=== PATIENT | male | born 1965 | race Native Hawaiian/Other Pacific Islander ===

== ENCOUNTER 2024-06-28 16:28 | Emergency (ER) | payer MEDICAID, SELFPAY ==
[2024-06-28 16:29] VITALS: BMI 25.9
[2024-06-28 17:02] VITALS: BP 142/92; PULSE 87; RESP 20; TEMP 36.8; O2SAT 97
--- NOTE | 2024-06-28 17:11 | EKG_ITS ---
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
--- NOTE | 2024-06-28 17:11 | XR_ITS ---
Examination: PA lateral chest 2 views Technique: Upright PA lateral chest 2 views Exam date and time: June 28, 2024 at 1726 hrs. Indications: Chest pain beginning 2 days ago. Findings: Normal heart size No pneumonia or pulmonary edema The osseous structures are intact Impression: No active disease
--- NOTE | 2024-06-28 17:14 | PD.EDRME ---
Rapid Medical Screening Exam RME Arrival date/time: 06/28/24 16:28 This is a 58-year-old male that comes into the emergency room with complaints of chest pain and shortness of breath that comes and goes for the last couple days. Patient states that when he gets the chest pain he radiates down his right arm. Patient has a history of high blood pressure and diabetes. I have greeted and performed a focused initial assessment of this patient. Initial appropriate labs ordered at this time. A comprehensive ED assessment and evaluation of the patient and analysis of all test and completion of medical decision making process will be conducted by additional ED provider. Chief Complaint: Shortness of Breath/Dyspnea Time Seen by Provider: 06/28/24 16:37 Vital signs: Vital Signs Temperature 98.3 F 06/28/24 17:02 Pulse Rate 87 06/28/24 17:02 Respiratory Rate 20 06/28/24 17:02 Blood Pressure 142/92 H 06/28/24 17:02 Pulse Oximetry (%) 97 06/28/24 17:02 Oxygen Delivery Method Room Air 06/28/24 17:02
[2024-06-28 17:38] LABS: Basophils % (Auto) 1 % (0-2.5); Eosinophils # (Auto) 0.1 Thou/mm3 (0.0-0.5); Eosinophils % (Auto) 2 % (0-10); Hemoglobin 12.8 g/dL (13.5-16.0); Immature Granulocytes % (Auto) 0 % (0-0); Immature Granulocytes Auto 0.02 Thou/mm3 (0.00-0.00); Lymphocytes # (Auto) 2.1 Thou/mm3 (1.0-4.8); Lymphocytes % (Auto) 37 % (10-50); Mean Corpuscular HGB Conc 30.5 g/dl (31.0-37.0); Mean Corpuscular Volume 72 fL (80-100); Monocytes # (Auto) 0.7 Thou/mm3 (0.0-0.8); Monocytes % (Auto) 12 % (0-12); Neutrophils # (Auto) 2.7 Thou/mm3 (1.8-7.7); Neutrophils % (Auto) 48 % (37-80); Nucleated Red Blood Cell % 0 /100 WBC (0); Platelet Count 224 Thou/mm3 (140-440); RDW Standard Deviation 35.6 fL (35.1-43.9); Red Blood Count 5.81 Miln/mm3 (4.50-5.90); White Blood Count 5.6 Thou/mm3 (3.8-10.6)
[2024-06-28 17:57] LABS: Alanine Aminotransferase 26 U/L (10-49); Albumin, Serum 4.6 gm/dL (3.5-5.0); Albumin/Globulin Ratio 1.6 (1.2-2.2); Alkaline Phosphatase 96 U/L (46-116); Anion Gap 9 (7-16); Aspartate Amino Transferase 20 U/L (0-34); BUN/Creatinine Ratio 14 Ratio (12-20); Bilirubin,Total 0.3 mg/dL (0.3-1.2); Blood Urea Nitrogen 17 mg/dL (9-23); Calcium 9.3 mg/dL (8.3-10.6); Calcium (Corrected) 9.3 mg/dL (8.5-10.1); Carbon Dioxide 27.8 mMol/L (20.0-31.0); Chloride 105 mMol/L (98-107); Creatinine (Component) 1.2 mg/dL (0.6-1.3); Estimated Creatinine Clearance 65.7 mL/min (>60); Globulin 2.9 gm/dL (2.3-3.5); Glucose 100 mg/dL (74-106); Osmolality,Calculated 284 (275-295); Potassium 3.8 mMol/L (3.4-5.1); Sodium 142 mMol/L (136-145); Total Protein 7.5 gm/dL (5.7-8.2); Troponin I < 0.002 ng/mL (0.0-0.045); eGFR > 60 See Note
[2024-06-28 17:59] LABS: B-Type Natriuretic Peptide 28 pg/mL (0-100)
--- NOTE | 2024-06-28 20:45 | PC.NURSE ---
NO ANSWER FOR REVIEW
--- NOTE | 2024-06-28 21:00 | PC.NURSE ---
NO ANSWER FOR REVIEW
--- NOTE | 2024-06-28 21:15 | PC.NURSE ---
NO ANSWER FOR REVIEW
== END 2024-06-28 21:25 | disposition left against medical advice (07) ==
PROVIDERS: Nurse Practitioner Family; Emergency Provider Emergency Medicine; PCP Nurse Practitioner Family
DX: R06.02 Shortness of breath (principal); E11.9 Type 2 diabetes mellitus without complications; Z53.29 Procedure and treatment not carried out because of patient's decision for other reasons
CPT/HCPCS: 36415; 71046; 80053; 83880; 84484; 85025; 93005; 99283

== ENCOUNTER 2024-07-04 02:57 | Inpatient (IN) | payer MEDICAID, SELFPAY ==
[2024-07-04] VITALS (11 sets, daily range): BP systolic 105–142; BP diastolic 74–100; PULSE 67–111; RESP 15–19; TEMP 36.2–37.1; O2SAT 95–98; BMI 26.6
--- NOTE | 2024-07-04 03:08 | EKG_ITS ---
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
[2024-07-04 04:04] LABS: Basophils # (Auto) 0.1 Thou/mm3 (0.0-0.2); Basophils % (Auto) 1 % (0-2.5); Eosinophils # (Auto) 0.1 Thou/mm3 (0.0-0.5); Eosinophils % (Auto) 2 % (0-10); Hematocrit 41.7 % (41.0-53.0); Hemoglobin 12.9 g/dL (13.5-16.0); Immature Granulocytes % (Auto) 0 % (0-0); Immature Granulocytes Auto 0.02 Thou/mm3 (0.00-0.00); Lymphocytes % (Auto) 37 % (10-50); Mean Corpuscular HGB Conc 30.9 g/dl (31.0-37.0); Mean Corpuscular Hemoglobin 21.8 pg (25.0-35.0); Mean Corpuscular Volume 71 fL (80-100); Monocytes # (Auto) 0.6 Thou/mm3 (0.0-0.8); Monocytes % (Auto) 11 % (0-12); Neutrophils # (Auto) 2.6 Thou/mm3 (1.8-7.7); Neutrophils % (Auto) 50 % (37-80); Nucleated Red Blood Cell % 0 /100 WBC (0); Platelet Count 197 Thou/mm3 (140-440); RDW Standard Deviation 34.5 fL (35.1-43.9); Red Blood Count 5.91 Miln/mm3 (4.50-5.90); White Blood Count 5.3 Thou/mm3 (3.8-10.6)
[2024-07-04 04:20] LABS: Alanine Aminotransferase 33 U/L (10-49); Albumin, Serum 4.3 gm/dL (3.5-5.0); Albumin/Globulin Ratio 1.5 (1.2-2.2); Alkaline Phosphatase 104 U/L (46-116); Anion Gap 8 (7-16); Aspartate Amino Transferase 22 U/L (0-34); BUN/Creatinine Ratio 18 Ratio (12-20); Bilirubin,Total 0.4 mg/dL (0.3-1.2); Blood Urea Nitrogen 20 mg/dL (9-23); Calcium 9.6 mg/dL (8.3-10.6); Calcium (Corrected) 9.6 mg/dL (8.5-10.1); Carbon Dioxide 27.6 mMol/L (20.0-31.0); Chloride 105 mMol/L (98-107); Creatinine (Component) 1.1 mg/dL (0.6-1.3); Estimated Creatinine Clearance 69.3 mL/min (>60); Globulin 2.9 gm/dL (2.3-3.5); Glucose 143 mg/dL (74-106); Osmolality,Calculated 285 (275-295); Potassium 3.8 mMol/L (3.4-5.1); Sodium 141 mMol/L (136-145); Total Protein 7.2 gm/dL (5.7-8.2); eGFR > 60 See Note
[2024-07-04 04:33] LABS: D-Dimer 726 ng/mL (<600)
--- NOTE | 2024-07-04 04:35 | XR_ITS ---
Examination: CTA chest with intravenous contrast 2-D reconstructions 3-D reconstructions, vascular Date and time of exam: 2024 at 0613 hrs. Indication: Chest pain shortness of breath syncopal episode today with elevated d-dimer CTDI: vol (mGy) 10.1 DLP: (mGycm) 383 Technique: Multiple axial sections of the thorax have been obtained. 3 mm slice thickness, from below the hemidiaphragms to above the apices of the lungs. Mediastinal and lung density settings have been obtained. 2-D sagittal and coronal reconstructions. 3-D angiographic renderings, 3-D volume renderings, 3D post processing, vascular maximum intensity projections obtained. Contrast administered is 100 cc Isovue-370. Intravenous Low dose protocols were performed. One or more of the following dose reduction techniques were used; automated exposure control, adjustment of the mA and/or KV according to patient size, use of iterative reconstruction technique. Findings: No thoracic aortic aneurysm dilatation No pulmonary artery emboli No paratracheal and peribronchial or bronchopulmonary adenopathy Tiny cavitary areas of parenchymal disease throughout the right lung, for instance axial image 97, axial image 184 No lobar pneumonia or pulmonary edema Mild thoracic spondylosis No pleural disease No visualized liver lesion no gallstones or pancreatic mass Normal adrenal glands Kidneys partially visualized no hydronephrosis Impression: Negative for pulmonary artery emboli Scattered areas of cavitary disease throughout the right lung, differential would include tuberculosis, coccidioidomycosis, clinical correlation advised
--- NOTE | 2024-07-04 04:35 | PC.NURSE ---
Pt presents to the Er with c/o right sided chest pain worsening with breathing and sob. Pt states he was seen last week for the same symptoms. pt states since then pain has been continued intermittently. Pt has cardiology consult and is awaiting to see in August of this year. Pt in NAD at this time, respirations are even and unlabored. Pt placed on cardiac monitoring, Iv started 20gLAC. Pt updated on care plan. Call light within reach. Plan of care on going at this time.
--- NOTE | 2024-07-04 04:38 | EDNOTE_ITS ---
<Statement entered by Kathy Millan MD - 07/04/24 18:35> As co-signing physician, I was present and available for consult prn. I concur with the plan and care as documented by the midlevel provider. ED SOB =RME/HPI General Chief Complaint: Chest Pain Stated Complaint: BACK PAIN,SOB Time Seen by Provider: 07/04/24 03:38 Arrival date/time: 07/04/24 02:57 58M with history of DM and HLD presents to ED with 1 week of R upper back pain radiating to R-arm and SOB, as well as near-syncope. Pain is somewhat worse with movement. Patient was here about 1 week ago for this with unremarkable cardiac work-up but no D-dimer was checked. Patient denies recent travel, smoking, RUE swelling, URI symptoms, dysuria/hematuria, and fall/trauma. Patient has initial cardiology appt in August. Limitations: no limitations Related Data Home Medications ?Medication ?Instructions ?Recorded ?Confirmed aspirin 81 mg chewable tablet 81 mg PO QDAY 07/04/24 0 07/04/24 atorvastatin 40 mg tablet 40 mg PO QPM 07/04/24 finerenone 10 mg tablet (Kerendia) 10 mg PO QDAY 07/0407/04/24 lisinopril 10 mg tablet 10 mg PO QDAY 07/04/2407/04 Allergies Allergy/AdvReac Type Severity Reaction Status Date / Time No Known Allergies Allergy Verified 07/04/24 03:00 Review of Systems Review of Systems Systems Reviewed: All systems reviewed, normal except as documented Constitutional Constitutional: Reports system reviewed and no additional complaints, except as documented, Denies fever(s) and Denies headache(s) ENT Ears, Nose, Mouth, and Throat: Denies disequilibrium and Denies headache(s) Cardiovascular Cardiovascular: Reports system reviewed and no additional complaints, except as documented, Denies chest pain, Reports dyspnea and Reports syncope (near syncope) Respiratory Respiratory: Reports system reviewed and no additional complaints, except as documented, Reports as per HPI, Denies cough and Reports dyspnea Gastrointestinal Gastrointestinal: Reports system reviewed and no additional complaints, except as documented, Denies abdominal pain, Denies nausea and Denies vomiting Musculoskeletal Musculoskeletal: Reports as per HPI and Reports back pain Neurologic Neurologic: Reports system reviewed and no additional complaints, except as documented, Reports as per HPI, Denies confusion, Denies disequilibrium, Denies headache(s) and Reports syncope (near syncope) Psychiatric Psychiatric: Denies confusion Past Medical History Past Medical History CARDIAC: Negative Cardiac Disorders or Congestive Heart Failure RESPIRATORY: Negative Chronic Obstructive Pulmonary Disease (COPD) or Asthma GENITOURINARY: Negative Renal Disease ENDOCRINE: Negative Diabetes Mellitus Type 1 or Diabetes Mellitus Type 2 HEMATOLOGIC: Negative Sickle Cell Disease Social History SMOKING STATUS: Never smoker ED Exam General Limitations: Present no limitations General appearance: Present alert and in no apparent distress Head Head exam: Present atraumatic Eye Eye exam: Present normal appearance, PERRL and EOMI ENT ENT exam: Present normal exam, normal oropharynx and mucous membranes moist Neck Neck exam: Present normal inspection, full ROM and trachea midline Chest Chest inspection: Present normal inspection and symmetric chest wall rise Respiratory Respiratory exam: Present normal lung sounds bilaterally Cardiovascular Cardiovascular exam: Present regular rate, normal rhythm and normal heart sounds Abdominal Exam Abdominal exam: Present soft and normal bowel sounds Extremities Exam Extremities exam: Present normal inspection and full ROM Back Exam Back exam: Present normal inspection and full ROM Neurological Exam Neurological exam: Present alert, oriented X3 and CN II-XII intact Psychiatric Psychiatric exam: Present normal affect and normal mood Skin Skin exam: Present warm, dry, intact and normal color Course Quality Measures none Orders Category Date Time Status Bedside Influenza A&B Antigen Test NOW Care 07/04/24 08:56 Completed COVID-19 Screening Questionnaire NOW Care 07/04/24 08:[address] Screening NOW Care 07/04/24 04:35 Active Decision to Admit X1 Care 07/04/24 08:57 Completed EKG (ED ONLY) *Do not use* NOW Care 07/04/24 03:08 Completed Insert IV NOW Care 07/04/24 04:[address] angio chest Stat Exams 07/04/24 04:35 Completed EKG (ED Only) Stat Exams 07/04/24 03:08 Draft CBC Stat Lab 07/04/24 03:49 Completed CMP [Comprehensive Metabolic Panel] Stat Lab 07/04/24 03:49 Completed Cocci Serology IgM with reflex to IgG [Cocci Serology, Lab 07/04/24 08:31 Ordered Unk History] Stat D-Dimer Stat Lab 07/04/24 03:49 Completed INR [Prothrombin Time with INR] Stat Lab 07/04/24 03:49 Completed PTT [Partial Thromboplastin Time] Stat Lab 07/04/24 03:49 Completed Troponin I Stat Lab 07/04/24 03:49 Completed Troponin I Stat Lab 07/04/24 07:54 Completed Vital Signs Vital signs: Vital Signs Temperature 98.0 F 07/04/24 03:21 Pulse Rate 87 07/04/24 03:21 Respiratory Rate 18 07/04/24 03:21 Blood Pressure 121/86 H 07/04/24 03:21 Pulse Oximetry (%) 97 07/04/24 03:21 Oxygen Delivery Method Room Air 07/04/24 03:21 O2 at 97% on RA and WNLs Shortness of Breath / Dyspnea MDM Narrative MDM Narrative:: 58M with history of DM and HLD presents to ED with 1 week of R upper back pain radiating to R-arm and SOB, as well as near-syncope. Pain is somewhat worse with movement. Patient was here about 1 week ago for this with unremarkable cardiac work-up but no D-dimer was checked. Patient denies recent travel, smoking, RUE swelling, URI symptoms, dysuria/hematuria, and fall/trauma. Patient has initial cardiology appt in August. Physical exam reveals clear ENT and lungs. RRR. Normal RUE exam. Patient is afebrile, calm, and alert. EKG has significant RBBB. However this RBBB has been consistent in his EKGs going back to 2021. Patient had a CTA back in 2021 with no PE, but did show moderate calcification of LAD. No leukocytosis. CMP unremarkable. D-dimer mildly elevated. Trop normal. CTA ordered. Care signed out to colleague. Addendum: CTA no PE. Possible TB/cocci. Patient was admitted by colleague. Patient data External records reviewed:: [facility] previous records Clinical information provided by:: patient Social determinants that could affect healthcare access:: none Patient has the following chronic illnesses:: DM and HLD How is presenting disease/condition affected by chronic disease/condition?: exacerbated by Evaluation data The following diagnostics were reviewed and interpreted by me:: lab results, radiology exam(s) and EKG tracing(s) Lab and/or radiology exams considered but not ordered:: ordered Interpretation Summary: above Medications / Prescriptions Medications or Prescriptions considered but not ordered:: ordered Medication administrations:: Medication Administration History Acetaminophen (Acetaminophen 500 Mg Tablet) 1,000 mg PO Q6H PRN PRN Reason: Fever >100 or pain 1-3 Stop: 08/03/24 14:31 Albuterol/Ipratropium (Albuterol/Ipratropium (Duoneb) Rt [place] 3 Ml Nebu) 3 ml INH Q6HRRT PRN PRN Reason: SHORTNESS OF BREATH OR WHEEZE Stop: 08/03/24 14:31 Dextrose (Dextrose 50%-Water Inj 50 Ml Syringe) 25 ml IV Q15MIN PRN PRN Reason: BG 50-70 responsive npo pt Stop: 08/03/24 14:34 Dextrose (Dextrose 50%-Water Inj 50 Ml Syringe) 50 ml IV Q15MIN PRN PRN Reason: BG <50 OR BG <70 & pt unresponsive Stop: 08/03/24 14:34 Enoxaparin Sodium (Enoxaparin Sod Inj 40 Mg/0.4 Ml Syringe) 40 mg SC QDAY MICHEL Stop: 07/19/24 08:59 Glucagon (Glucagon Inj 1 Mg Vial) 1 mg IM Q15MIN PRN PRN Reason: BG <70, and no IV access Insulin Human Lispro (Insulin Lispro (Admelog) 1 Unit/0.01 Ml Unit) 0 unit SC AC MICHEL; Protocol Stop: 08/03/24 16:59 Last Admin: 07/04/24 17:26 Dose: Not Given Documented By: ANABEL Non-Admin Reason: blood sugar 146 Ondansetron HCl (Ondansetron Inj 2 Mg/Ml Inj 2 Ml) 4 mg IV Q6H PRN; Protocol PRN Reason: NAUSEA OR VOMITING Stop: 08/03/24 14:31 Sennosides (Senna Tablet) 1 tab PO QDAY PRN; Protocol PRN Reason: constipation Stop: 08/03/24 14:31 Discontinued Medications Dextrose (D10w 1000 Ml) 1,000 mls @ 100 mls/hr IV .Q10H MICHEL Stop: 07/05/24 00:44 Sodium Chloride (Sodium Chloride Rt 10% 15 Ml Nebu) 5 ml INH X1 ONE Stop: 07/04/24 14:37 above Consultations Consultation(s) initiated? (list below): Yes Diagnosis Shortness of Breath Differential Diagnosis: acute exacerbation of chronic obstructive airways disease, congestive heart failure, community acquired pneumonia, asthma with exacerbation, pulmonary embolism and other (ACS, angina, atypical chest pain and pulmonary cavitary lesion) Most likely diagnosis given after review of the tests above:: atypical chest pain and pulmonary cavitary lesion Admission Indicated Admission indicated?: indicated Admission Request Was there a request for admission?: Yes Admission Attestation Admission request attestation: Colleague discussed case with Hospitalist service regarding admission. Discussed patients ED course, exam findings, labs, and radiology results. The Hospitalist [agrees] to accept the patient for admission. Disposition Plan Disposition Plan: Admit Discharge Plan Plan Patient Disposition: Admit Acute Care w/in Hospital Problem List Clinical Impression: Atypical chest pain, Pulmonary cavitary lesion Patient/Caregiver Discharge Instructions Discharge Activity: activity as tolerated PA/DETACHER Supervising Physician PA/DETACHER Supervising Physician: Dr Duff
[2024-07-04 04:50] LABS: Troponin I < 0.002 ng/mL (0.0-0.045)
[2024-07-04 05:08] LABS: Partial Thromboplastin Time 26.1 Seconds (22.0-36.0); Prothrombin Time 10.5 Seconds (9.0-12.2)
[2024-07-04 08:20] LABS: Troponin I < 0.002 ng/mL (0.0-0.045)
--- NOTE | 2024-07-04 08:58 | EDNOTE_ITS ---
Emergency Room Addendum Addendum Narrative: This case was signed out to me by colleague as a signout. To follow-up on CTA rule out PE. 58-year-old [place] male history of hypertension, hyperlipidemia presented to the emergency department with complaints of right sided chest pain intermittently for the last 2 weeks. Patient reports he had been to the emergency department approximate 2 weeks ago and followed up with his PCP however pain continued. I went ahead and reviewed his CT a was negative for PE however patient had some multiple cavitary lesions on the right side lung. Radiologist read to rule out TB, cocci. I did go ahead and ordered a cocci with reflex titers. Patient denies any recent travel, is not experiencing myalgias, fatigue, hemoptysis, night sweats, decreased weight loss. At this time I will go ahead and call the admitting team for admission due to rule out TB. 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 called at [phone] I did go ahead and call the admitting team spoke with Paul- resident they will come and evaluate the patient for admission.
--- NOTE | 2024-07-04 09:27 | PD.RESHP ---
Documentation for date of: 07/04/24 [facility] History of Present Illness History of present illness: Harshad is a 58-year-old male with past medical history of hypertension, hyperlipidemia, prediabetes who comes for an evaluation of right-sided chest pain that radiates to his back, that comes and goes, rated 4 out of 10, does not change with exertion, and has been having this for years. Of note patient was recently seen in the ER for similar symptoms and had workup and was then sent home by ED. He comes in for further evaluation today for similar complaints. He does endorse that this has been going on for years and want to make sure that it was nothing else. He denies having any headache or associated shortness of breath or cough. He denies any recent travel, sick contacts. He says that he is from [facility] and came to [place] in 1977 and has not been to [facility] since 2004. He denies any night sweats, weight loss. He says that he has never got the beta-hCG vaccine. Denies being exposed at least to his knowledge to anyone with tuberculosis. His bowel movements are regular. denies any other symptoms of fever, nausea, vomiting, diarrhea, abdominal pain, confusion. He says he has taken metformin for, however stopped as it was giving him nausea, however he says he is prediabetic. No other complaints at this time. ED course: Patient came to the ED with a blood pressure of 134/88, heart rate of 72, respiratory of 16, saturating on 98% room air, temperature of 98. He was worked up and was found to have a white count of 5.3 hemoglobin 13, platelets of 197, sodium of 141, potassium of 3.8 bicarb of 28, BUN/creatinine of 21.1 respectively, glucose of 143, coagulation panel negative, D-dimer 726, AST ALT 22 and 32 respectively. Troponin negative x 2. EKG showed normal sinus rhythm, however right bundle branch block V2 (however this has been seen in previous EKGs). CTA chest was done and showed multiple scattered areas of cavitation in right lung. Medicine was consulted and patient admitted to floors. Past medical history: As above Surgical history: Repair of hernia in Allergies: No known allergies Meds: Lipitor, a blood pressure medicine he does not know the name of, and vitamin D Family history: Mother had diabetes, denies history of stroke, heart attacks and tuberculosis in the family. Social history: Born in [facility], came in 1977 to [facility]. He lived in [facility] specifically [place] until 2018 as he moved here to take care of his mom. 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 He denies ever getting the beta-hCG vaccine. 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 Denies history of smoking, oral or IV drug use, has an occasional beer but he does not finish it routinely. Walks 2 miles 3 times a week. Eats a majority of his meals at home. Denies any recent travel outside the country. Review of Systems Review of Systems Narrative Review of Systems: Constitutional: No fever, chills, fatigue, weakness, weight loss HEENT: No eye pain, vision loss, ear pain, hearing loss, dysphagia, Cardiovascular: Positive right sided chest pain, palpitations, edema, pain with walking Respiratory: No cough, shortness of breath, wheezing GI: No NVD, abdominal pain, constipation, blood in stool, loss of appetite, heartburn Extremities: No presence of pitting edema MSK: Positive right-sided back pain, joint pain, joint swelling Neuro: No dizziness, numbness, weakness, headaches, seizures, tremors Psych: No anxiety, depression Exam Vital Signs Temp Pulse Resp BP Pulse Ox O2 Del Method 98.2 F 79 18 133/90 H 97 Room Air 07/04/24 09:00 07/04/24 09:00 07/04/24 09:00 07/04/24 09:00 07/04/24 09:00 07/04/24 09:00 Narrative Exam General: AAOx3, NAD, pleasant appearing male with blonde hair HEENT: Moist mucous membranes, conjunctiva clear, EOMI, PERRLA, some missing dentition Cardiovascular: S1, S2, radial pulses +2 bilat, RRR Pulmonary: CTAB bilat no cough, no wheezing GI: No tenderness to light or deep palpitation, no guarding, rigidity, rebound tenderness or distension Extremities: No presence of trace or pitting edema in lower extremities bilaterally, dorsalis pedis pulses +2 bilaterally, right shoulder tattoos, some possible ulcers/scabs seen on lower extremities bilaterally, significant prominence of distal end of ulna or pisiform bilaterally Back: Thoracic and lumbar spine midline, no evidence of trauma to back Neuro: AAOx3, no focal motor or sensory deficits in the UE or LE bilat Psych: Good judgement, thought and behavior. Cooperative Results: Labs 07/05/24 05:55 07/05/24 05:55 Labs: Short CBC 07/04/24 Range/Units 03:49 WBC 5.3 (3.8-10.6) Thou/mm3 Hgb 12.9 L (13.5-16.0) g/dL Hct 41.7 (41.0-53.0) % Plt Count 197 (140-440) Thou/mm3 BMP 07/04/24 03:49 Sodium 141 Potassium 3.8 Chloride 105 Carbon Dioxide 27.6 BUN 20 Creatinine 1.1 Glucose 143 H Calcium 9.6 Cardiac Enzymes 07/04/24 07/04/24 Range/Units 03:49 07:54 Troponin I < 0.002 < 0.002 (0.0-0.045) ng/mL Liver Function 07/04/24 Range/Units 03:49 Total Bilirubin 0.4 (0.3-1.2) mg/dL AST 22 (0-34) U/L ALT 33 (10-49) U/L Alkaline Phosphatase 104 (46-116) U/L Albumin 4.3 (3.5-5.0) gm/dL Quality Measures Quality Measures none Medications Home Medications and Allergies Home Medications ?Medication ?Instructions ?Recorded ?Confirmed ?Type aspirin 81 mg chewable tablet 81 mg PO QDAY 07/04/24 07/04/24 History atorvastatin 40 mg tablet 40 mg PO QPM 07/04/24 07/04/24 History finerenone 10 mg tablet (Kerendia) 10 mg PO QDAY 07/04/24 07/04/24 History lisinopril 10 mg tablet 10 mg PO QDAY 07/04/24 07/04/24 History Allergies Allergy/AdvReac Type Severity Reaction Status Date / Time No Known Allergies Allergy Verified 07/04/24 03:00 Assessment & Plan Plan Assessment Harshad is a 58-year-old male with past medical history of hypertension, hyperlipidemia, prediabetes who comes for evaluation of cavitary lesions in the right lobe and TB rule out. #TB rule out #Cavitary lesion DDx: Cocci, TB, bleb, abscess, aspergillus, berylliosis Risk factors: Used to live in [place] until 9 years old Travel history: Has not traveled back to [facility] since 2004. 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 Pulmonology consulted, appreciate recs ? Infectious disease consulted, appreciate recs ? AFBs x 3 ? Cocci serologies ? Quantiferon Gold ? Airborne precautions #History of hypertension #History of prediabetes #History of HLD #History of right bundle branch block Plan: ? Sliding scale insulin ? Hypoglycemic protocol in place ? Blood sugar checks with meals ? Awaiting med rec #Health Maintenance Disposition: MedSurg DVT prophylaxis: Lovenox GI prophylaxis: None indicated at this time Diet: Carb consistent low CODE STATUS: Full Patient seen and care discussed with my senior resident, Dr. Miller, and my attending physician, Dr. Corey Barnes, PGY-1 Patient examined and case discussed with the team including attending physician. Note reviewed, I agree with the care plan as documented. Mr Salinas is a 58-year-old male with past medical history of hypertension, hyperlipidemia, prediabetes who comes for evaluation of RT sided cavitary lesions noted of CT chest. Patient was admitted for TB r/o, placed on isolation precautions. Imaging reviewed with [employer] Dr Borrero, appreciate recommendations, likely exposure to chemicals causing ILD versus emphysema versus possible tuberculosis. Pending TB AFB cultures and QF testing, also ordered Cocci serology to rule out fungal etiology. - Dixon Miller MD, PGY 2 Disclaimer: The document below may not be free of grammatical/phonetic/typographic errors due to use of voice recognition software. This does not dissuade from the commitment to providing health care with the patient's best interest in mind. Attending Provider Attestation/Addendum I have examined the patient, reviewed labs and imaging findings, discussed the case with the resident(s), and reviewed entered orders. I agree with the plan of care as outlined in this note, with these additional summaries/recommendations: Patient seen at bedside. He reports he presented to [facility] emergency department with chief complaint of right-sided chest pain that has been present for years although recently worsened. In the emergency room patient underwent CTA chest to rule out pulmonary embolism. CTA was negative for pulmonary embolism but did reveal scattered areas of cavitary disease throughout the right lung. We will place patient on isolation precautions. Rule out active tuberculosis and coccidioidomycosis. Imaging reviewed with in-house pulmonology reports findings are most likely related to previous exposure causing ILD versus emphysematic versus least likely active tuberculosis. Nonetheless active tuberculosis needs to be ruled out before patient can safely resume to the community. Follow-up tuberculosis studies and cocci. Repeat hematology and chemistry panel in AM. Dr. Corey MD
[2024-07-04 15:53] LABS: Cult AFB Sendout- Sputum* See Sep Rpt
[2024-07-05] VITALS (7 sets, daily range): BP systolic 93–126; BP diastolic 67–92; PULSE 74–112; RESP 16–19; TEMP 36.2–36.4; O2SAT 96–98
[2024-07-05 06:31] LABS: Basophils % (Auto) 1 % (0-2.5); Eosinophils # (Auto) 0.1 Thou/mm3 (0.0-0.5); Eosinophils % (Auto) 2 % (0-10); Hematocrit 49.2 % (41.0-53.0); Hemoglobin 15.1 g/dL (13.5-16.0); Immature Granulocytes % (Auto) 0 % (0-0); Immature Granulocytes Auto 0.02 Thou/mm3 (0.00-0.00); Lymphocytes % (Auto) 33 % (10-50); Mean Corpuscular HGB Conc 30.7 g/dl (31.0-37.0); Mean Corpuscular Volume 72 fL (80-100); Monocytes # (Auto) 0.5 Thou/mm3 (0.0-0.8); Monocytes % (Auto) 8 % (0-12); Neutrophils # (Auto) 3.5 Thou/mm3 (1.8-7.7); Neutrophils % (Auto) 57 % (37-80); Nucleated Red Blood Cell % 0 /100 WBC (0); Platelet Count 242 Thou/mm3 (140-440); RDW Standard Deviation 35.3 fL (35.1-43.9); Red Blood Count 6.85 Miln/mm3 (4.50-5.90); White Blood Count 6.1 Thou/mm3 (3.8-10.6)
[2024-07-05 06:45] LABS: Partial Thromboplastin Time 25.9 Seconds (22.0-36.0); Prothrombin Time 10.7 Seconds (9.0-12.2)
[2024-07-05 07:00] LABS: Alanine Aminotransferase 38 U/L (10-49); Albumin, Serum 5.2 gm/dL (3.5-5.0); Albumin/Globulin Ratio 1.6 (1.2-2.2); Alkaline Phosphatase 89 U/L (46-116); Anion Gap 9 (7-16); Aspartate Amino Transferase 26 U/L (0-34); BUN/Creatinine Ratio 14 Ratio (12-20); Bilirubin,Total 0.7 mg/dL (0.3-1.2); Blood Urea Nitrogen 17 mg/dL (9-23); Calcium 10.1 mg/dL (8.3-10.6); Calcium (Corrected) 10.1 mg/dL (8.5-10.1); Carbon Dioxide 30.7 mMol/L (20.0-31.0); Cardiac Risk Estimate 5.5 RATIO (4.0-6.7); Chloride 101 mMol/L (98-107); Cholesterol 268 mg/dL (132-200); Creatinine (Component) 1.2 mg/dL (0.6-1.3); Estimated Creatinine Clearance 63.5 mL/min (>60); Globulin 3.3 gm/dL (2.3-3.5); Glucose 136 mg/dL (74-106); HDL Cholesterol 49 mg/dL (40-60); LDL Cholesterol,Calculated 172 mg/dL (0-130); Magnesium 2.1 mg/dL (1.6-2.6); Osmolality,Calculated 284 (275-295); Phosphorous 3.3 mg/dL (2.4-5.1); Potassium 3.5 mMol/L (3.4-5.1); Sodium 141 mMol/L (136-145); Thyroid Stimulating Hormone 2.06 uIU/mL (0.55-4.78); Total Protein 8.5 gm/dL (5.7-8.2); Triglycerides 237 mg/dL (30-150); eGFR > 60 See Note
[2024-07-05 07:02] LABS: Glucose Estimated Average 160 mg/dL (80-131); Hemoglobin A1C 7.2 % Hgb (4.8-6.0)
[2024-07-05] MEDS: ENOXAPARIN SOD INJ 40 MG/0.4 ML SYRINGE SC (09:55)
[2024-07-05] MEDS: ASPIRIN EC 81 MG TABEC PO (09:55)
--- NOTE | 2024-07-05 10:40 | ESPR_ITS ---
<Statement entered by Black Coon MD - 07/06/24 07:10> Senior Resident Attestation: I supervised/discussed management plan with mba internship physician Dr. Barnes, and was involved in the care of this patient. I personally saw and examined the patient and discussed the assessment and plan with the entire medicine team, including my attending. I agree with the assessment and plan as documented. Patient's care was discussed with attending physician, Dr. Nicole. Black Coon MD PGY-2. Documentation for date of: 07/05/24 Subjective Subjective Interval history: Patient examined at bedside today. No acute overnight events. Patient reports he is doing well, is not experiencing any pain at this point. Denies any shortness of breath or having night sweats. He is wondering when he can go home. He appreciates our care for him and is willing to stay with our care to figure out what is going on with him. Had 2 bowel movements this morning. No other complaints this time Exam Vital Signs Temp Pulse Resp BP Pulse Ox O2 Del Method 97.2 F 84 19 126/85 H 98 Room Air 07/05/24 08:00 07/05/24 08:00 07/05/24 08:00 07/05/24 08:00 07/05/24 08:00 07/05/24 08:00 Narrative Exam General: AAOx3, NAD, pleasant appearing male with blonde hair HEENT: Moist mucous membranes, conjunctiva clear, EOMI, PERRLA, some missing dentition Cardiovascular: S1, S2, radial pulses +2 bilat, RRR Pulmonary: CTAB bilat no cough, no wheezing GI: No tenderness to light or deep palpitation, no guarding, rigidity, rebound tenderness or distension Extremities: No presence of trace or pitting edema in lower extremities bilaterally, dorsalis pedis pulses +2 bilaterally, right shoulder tattoos, some possible ulcers/scabs seen on lower extremities bilaterally, significant prominence of distal end of ulna or pisiform bilaterally Back: Thoracic and lumbar spine midline, no evidence of trauma to back Neuro: AAOx3, no focal motor or sensory deficits in the UE or LE bilat Psych: Good judgement, thought and behavior. Cooperative Objective Labs 07/06/24 05:27 07/06/24 05:27 Labs: Laboratory Results - last 24 hr 07/05/24 05:55 WBC 6.1 RBC 6.85 H Hgb 15.1 D Hct 49.2 MCV 72 L MCH 22.0 L MCHC 30.7 L RDW Std Deviation 35.3 Plt Count 242 D Neut % (Auto) 57 Lymph % (Auto) 33 Pike % (Auto) 8 Eos % (Auto) 2 Baso % (Auto) 1 Neut # (Auto) 3.5 Lymph # (Auto) 2.0 Pike # (Auto) 0.5 Eos # (Auto) 0.1 Baso # (Auto) 0.0 Immature Gran # (Auto) 0.02 H Absolute Nucleated RBC 0.00 Immature Gran % 0 Nucleated RBC % 0 PT 10.7 INR 1.0 APTT 25.9 Sodium 141 Potassium 3.5 Chloride 101 Carbon Dioxide 30.7 Anion Gap 9 BUN 17 Creatinine 1.2 Estim Creat Clear Calc 63.5 eGFR > 60 BUN/Creatinine Ratio [address] Glu mg/dL 160 H Hemoglobin A1c 7.2 H Calculated Osmolality 284 Calcium 10.1 Corrected Calcium 10.1 Phosphorus 3.3 Magnesium 2.1 Total Bilirubin 0.7 AST 26 ALT 38 Alkaline Phosphatase 89 Total Protein 8.5 H Albumin 5.2 H D Globulin 3.3 Albumin/Globulin Ratio 1.6 Triglycerides 237 H Cholesterol 268 H LDL Cholesterol, Calc 172 H HDL Cholesterol 49 Cholesterol/HDL Ratio 5.5 TSH 2.06 Quality Measures Quality Measures none Assessment & Plan Assessment Current Active Medications: Generic Name Dose Route Start Last Admin Trade Name Freq PRN Reason Stop Dose Admin Acetaminophen 1,000 mg 07/04/24 14:32 Acetaminophen 500 Mg Tablet PO 08/03/24 14:31 Q6H PRN Fever >100 or pain 1-3 Albuterol/Ipratropium 3 ml 07/04/24 14:32 Albuterol/Ipratropium (Duoneb) Rt Belén 3 Ml Nebu INH 08/03/24 14:31 Q6HRRT PRN SHORTNESS OF BREATH OR WHEEZE Aspirin 81 mg 07/05/24 09:00 Aspirin Ec 81 Mg Tabec PO 08/04/24 08:59 QDAY MICHEL Atorvastatin Calcium 80 mg 07/05/24 21:00 Atorvastatin Calcium 20 Mg Tablet PO 08/04/24 20:59 HS MICHEL Dextrose 50 ml 07/04/24 14:35 Dextrose 50%-Water Inj 50 Ml Syringe IV 08/03/24 14:34 Q15MIN PRN BG <50 OR BG <70 & pt unresponsive Enoxaparin Sodium 40 mg 07/05/24 09:00 Enoxaparin Sod Inj 40 Mg/0.4 Ml Syringe SC 07/19/24 08:59 QDAY MICHEL Glucagon 1 mg 07/04/24 14:35 Glucagon Inj 1 Mg Vial IM Q15MIN PRN BG <70, and no IV access Lactated Ringer's 1,000 mls @ 100 mls/hr 07/05/24 07:52 Lactated Ringers IV 07/05/24 17:51 .Q10H ONE Insulin Glargine 5 unit 07/05/24 21:00 Insulin Glargine (Lantus) 5 Unit/0.05 Ml (Per 5 Units) SC 07/05/24 21:01 X1 ONE Insulin Glargine 10 unit 07/06/24 21:00 Insulin Glargine (Lantus) 5 Unit/0.05 Ml (Per 5 Units) SC 08/05/24 20:59 [facility] Insulin Human Lispro 0 unit 07/04/24 17:00 07/05/24 08:03 Insulin Lispro (Admelog) 1 Unit/0.01 Ml Unit SC 08/03/24 16:59 Not Given AC [facility] Protocol Ondansetron HCl 4 mg 07/04/24 14:32 Ondansetron Inj 2 Mg/Ml Inj 2 Ml IV 08/03/24 14:31 Q6H PRN NAUSEA OR VOMITING Protocol Sennosides 1 tab 07/04/24 14:32 Senna Tablet PO 08/03/24 14:31 QDAY PRN constipation Protocol Plan Assessment Harshad is a 58-year-old male with past medical history of hypertension, hyperlipidemia, prediabetes who comes for evaluation of cavitary lesions in the right lobe and TB rule out. #TB rule out #Cavitary lesion DDx: Cocci, TB, bleb, abscess, aspergillus, berylliosis, emphysema Risk factors: Used to live in [facility] until 9 years old Travel history: Has not traveled back to [facility] since 2004. 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 Pulmonology consulted, appreciate recs ? Infectious disease consulted, appreciate recs ? AFBs x 3, follow-up ? Cocci serologies pending, follow-up ? QuantiFERON gold to be done Saturday ? Airborne precautions #History of hypertension #History of diabetes mellitus type 2 #History of HLD #Hypertriglyceridemia #History of right bundle branch block Triglycerides 237, total cholesterol 268, LDL 172 ASCVD recommends high intensity statin Patient will need outpatient diabetes medicine, cannot tolerate metformin due to nausea, will likely send with Januvia Plan: ? Resumed high intensity statin Lipitor 80 mg at bedtime ? 5 units of Lantus now, 5 tonight, 10 starting tomorrow night ? Sliding scale insulin ? Hypoglycemic protocol in place ? Blood sugar checks with meals ? Will holding blood pressure medicine at this time due to blood pressure being a little low this morning ? Resumed home ASA #Health Maintenance Disposition: MedSurg DVT prophylaxis: Lovenox GI prophylaxis: None indicated at this time Diet: Carb consistent low CODE STATUS: Full Patient seen and care discussed with my senior resident, Dr. Coon, and my attending physician, Dr. Corey Barnes, PGY-1 Attending Provider Attestation/Addendum I have examined the patient, reviewed labs and imaging findings, discussed the case with the resident(s), and reviewed entered orders. I agree with the plan of care as outlined in this note, with these additional summaries/recommendations: Patient seen at bedside. No acute overnight events. Today patient reports his right sided chest pain has resolved although is intermittent. Today he is reporting back pain and after further history most likely related to osteoarthritis and no intervention needed at this time. No red flag symptoms present for back pain and patient ambulating without difficulty. Advised patient to follow-up with PCP for back pain. In the emergency room patient underwent CTA chest to rule out pulmonary embolism. CTA was negative for pulmonary embolism but did reveal scattered areas of cavitary disease throughout the right lung. Patient on isolation precautions. Rule out active tuberculosis and coccidioidomycosis. Imaging reviewed with in-house pulmonology reports findings are most likely related to previous exposure causing ILD versus emphysematic versus cocci versus least likely active tuberculosis. Nonetheless active tuberculosis needs to be ruled out before patient can safely be discharged to the community. Follow-up tuberculosis studies and cocci. A1C returned 7.2% and patient informed he is no longer prediabetic and meets criteria for diabetes mellitus type II. Continue insulin sliding scale with Accu-Cheks. Target blood sugar of 140-180 while hospitalized. Repeat hematology and chemistry panel in AM. Dr. Corey MD
[2024-07-05] MEDS: RINGERS LACTATED 1000 ML 1,000 ML 100 ML IV (11:05)
[2024-07-05 14:59] LABS: Cocci Serology, IgM Negative (Negative)
[2024-07-05] MEDS: ATORVASTATIN CALCIUM 20 MG TABLET 80 MG PO (20:39)
[2024-07-06] VITALS (8 sets, daily range): BP systolic 93–130; BP diastolic 56–86; PULSE 69–92; RESP 16–19; TEMP 36.1–36.4; O2SAT 94–97; BMI 26.6
[2024-07-06 06:03] LABS: Basophils % (Auto) 1 % (0-2.5); Eosinophils # (Auto) 0.1 Thou/mm3 (0.0-0.5); Eosinophils % (Auto) 2 % (0-10); Hematocrit 39.9 % (41.0-53.0); Hemoglobin 12.4 g/dL (13.5-16.0); Immature Granulocytes % (Auto) 0 % (0-0); Immature Granulocytes Auto 0.01 Thou/mm3 (0.00-0.00); Lymphocytes # (Auto) 1.9 Thou/mm3 (1.0-4.8); Lymphocytes % (Auto) 35 % (10-50); Mean Corpuscular HGB Conc 31.1 g/dl (31.0-37.0); Mean Corpuscular Hemoglobin 22.1 pg (25.0-35.0); Mean Corpuscular Volume 71 fL (80-100); Monocytes # (Auto) 0.6 Thou/mm3 (0.0-0.8); Monocytes % (Auto) 11 % (0-12); Neutrophils # (Auto) 2.8 Thou/mm3 (1.8-7.7); Neutrophils % (Auto) 52 % (37-80); Nucleated Red Blood Cell % 0 /100 WBC (0); Platelet Count 186 Thou/mm3 (140-440); RDW Standard Deviation 34.5 fL (35.1-43.9); Red Blood Count 5.61 Miln/mm3 (4.50-5.90); White Blood Count 5.4 Thou/mm3 (3.8-10.6)
[2024-07-06 06:23] LABS: Anion Gap 7 (7-16); BUN/Creatinine Ratio 18 Ratio (12-20); Blood Urea Nitrogen 20 mg/dL (9-23); Carbon Dioxide 29.6 mMol/L (20.0-31.0); Chloride 104 mMol/L (98-107); Creatinine (Component) 1.1 mg/dL (0.6-1.3); Estimated Creatinine Clearance 69.3 mL/min (>60); Glucose 129 mg/dL (74-106); Osmolality,Calculated 285 (275-295); Sodium 141 mMol/L (136-145); eGFR > 60 See Note
[2024-07-06 08:00] LABS: Total Iron Binding Capacity 249 mcg/dL (250-425)
[2024-07-06] MEDS: INSULIN LISPRO (AdmeLOG) 1 UNIT/0.01 ML UNIT SC (08:06)
[2024-07-06 08:09] LABS: Iron 136 mcg/dL (65-175); Percent Iron Saturation 54 % (20-55); Unsaturated Iron Binding 113 (225-295)
[2024-07-06] MEDS: ASPIRIN EC 81 MG TABEC PO (09:24)
[2024-07-06] MEDS: ENOXAPARIN SOD INJ 40 MG/0.4 ML SYRINGE SC (09:24)
[2024-07-06 09:28] LABS: Quantiferon-TB* See Sep Rpt
--- NOTE | 2024-07-06 13:58 | ESPR_ITS ---
Documentation for date of: 07/06/24 Subjective Subjective Interval history: Patient was seen and examined at bedside. No acute overnight events. Patient's QuantiFERON was taken today. He wants to go home but is unable to because of pending TB rule out test. Cocci IgG was negative. Will continue current management and monitor patient. Exam Vital Signs Temp Pulse Resp BP Pulse Ox O2 Del Method 97.6 F 85 16 111/84 96 Room Air 07/06/24 12:00 07/06/24 12:07/06/24 12:07/06/24 12:07/06/24 12:07/06/24 12:00 Narrative Exam Gen: Well-developed and well-nourished male. HEENT: NCAT, PERRLA, EOMI, MMM, anicteric conjunctivae, poor dentition. CVS: normal S1 and S2. RRR. No M/R/G. Resp: CTA B/L. No rhonchi, rales, crackles or wheezing. Abd: soft, non-tender, non-distended. BS+ in all 4 quadrants. MSK: Good ROM in BUE & BLE. No edema or rash. Neuro: CN II-XII grossly intact. Strength 5/5 in BUE & BLE. Alert and oriented x3. Psych: appropriate mood and affect. Objective Labs 07/07/24 04:39 07/07/24 04:39 Labs: Laboratory Results - last 24 hr 07/05/24 07/06/24 07/06/24 05:55 05:27 05:57 WBC 5.4 RBC 5.61 Hgb 12.4 L D Hct 39.9 L MCV 71 L MCH 22.1 L MCHC 31.1 RDW Std Deviation 34.5 L Plt Count 186 D Neut % (Auto) 52 Lymph % (Auto) 35 [place] % (Auto) 11 Eos % (Auto) 2 Baso % (Auto) 1 Neut # (Auto) 2.8 Lymph # (Auto) 1.9 [place] # (Auto) 0.6 Eos # (Auto) 0.1 Baso # (Auto) 0.0 Immature Gran # (Auto) 0.01 H Absolute Nucleated RBC 0.00 Immature Gran % 0 Nucleated RBC % 0 Sodium 141 Potassium 4.0 D Chloride 104 Carbon Dioxide 29.6 Anion Gap 7 BUN 20 Creatinine 1.1 Estim Creat Clear Calc 69.3 eGFR > 60 BUN/Creatinine Ratio 18 Glucose 129 H Calculated Osmolality 285 Calcium 9.0 Iron 136 TIBC 249 L Iron Saturation 54 Unsat Iron Binding 113 L Coccidioides IgM Ab Negative Quality Measures Quality Measures VTE prophylaxis Assessment & Plan Assessment Current Active Medications: Generic Name Dose Route Start Last Admin Trade Name Freq PRN Reason Stop Dose Admin Acetaminophen 1,000 mg 07/04/24 14:32 Acetaminophen 500 Mg Tablet PO 08/03/24 14:31 Q6H PRN Fever >100 or pain 1-3 Albuterol/Ipratropium 3 ml 07/04/24 14:32 Albuterol/Ipratropium (Duoneb) Rt Belén 3 Ml Nebu INH 08/03/24 14:31 Q6HRRT PRN SHORTNESS OF BREATH OR WHEEZE Aspirin 81 mg 07/05/24 09:00 07/06/24 09:24 Aspirin Ec 81 Mg Tabec PO 08/04/24 08:59 81 mg QDAY MICHEL Administration Atorvastatin Calcium 80 mg 07/05/24 21:00 07/05/24 20:39 Atorvastatin Calcium 20 Mg Tablet PO 08/04/24 20:59 80 mg HS MICHEL Administration Dextrose 50 ml 07/04/24 14:35 Dextrose 50%-Water Inj 50 Ml Syringe IV 08/03/24 14:34 Q15MIN PRN BG <50 OR BG <70 & pt unresponsive Enoxaparin Sodium 40 mg 07/05/24 09:00 07/06/24 09:24 Enoxaparin Sod Inj 40 Mg/0.4 Ml Syringe SC 07/19/24 08:59 40 mg QDAY MICHEL Administration Glucagon 1 mg 07/04/24 14:35 Glucagon Inj 1 Mg Vial IM Q15MIN PRN BG <70, and no IV access Insulin Glargine 10 unit 07/06/24 21:00 Insulin Glargine (Lantus) 5 Unit/0.05 Ml (Per 5 Units) SC 08/05/24 20:59 HS [facility] Insulin Human Lispro 0 unit 07/04/24 17:00 07/06/24 11:08 Insulin Lispro (Admelog) 1 Unit/0.01 Ml Unit SC 08/03/24 16:59 Not Given AC [facility] Protocol Ondansetron HCl 4 mg 07/04/24 14:32 Ondansetron Inj 2 Mg/Ml Inj 2 Ml IV 08/03/24 14:31 Q6H PRN NAUSEA OR VOMITING Protocol Sennosides 1 tab 07/04/24 14:32 Senna Tablet PO 08/03/24 14:31 QDAY PRN constipation Protocol Plan Harshad is a 58-year-old male with past medical history of hypertension, hyperlipidemia, prediabetes who comes for evaluation of cavitary lesions in the right lobe and TB rule out. #TB rule out #Cavitary lesion DDx: Cocci, TB, bleb, abscess, aspergillus, berylliosis, emphysema Risk factors: Used to live in [facility] until 9 years old Travel history: Has not traveled back to [facility] since 2004. 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 Plan: ? Pulmonology consulted, appreciate recs ? Infectious disease consulted, appreciate recs ? AFBs x 3, follow-up ? Cocci serologies pending, follow-up ? QuantiFERON gold to be done Saturday ? Airborne precautions #History of hypertension #History of diabetes mellitus type 2 #History of HLD #Hypertriglyceridemia #History of right bundle branch block Triglycerides 237, total cholesterol 268, LDL 172 ASCVD recommends high intensity statin Patient will need outpatient diabetes medicine, cannot tolerate metformin due to nausea, will likely send with Jany Plan: ? Resumed high intensity statin Lipitor 80 mg at bedtime ? 5 units of Lantus now, 5 tonight, 10 starting tomorrow night ? Sliding scale insulin ? Hypoglycemic protocol in place ? Blood sugar checks with meals ? Will holding blood pressure medicine at this time due to blood pressure being a little low this morning ? Resumed home ASA #Health Maintenance Disposition: MedSurg DVT prophylaxis: Lovenox GI prophylaxis: None indicated at this time Diet: Carb consistent low CODE STATUS: Full Plan of care discussed with attending Dr. Nicole. [place] MD, PGY 2. Disclaimer: This note was dictated by speech recognition. Minor errors in manager cafe may be present due to voice recognition software. Attending Provider Attestation/Addendum I have examined the patient, reviewed labs and imaging findings, discussed the case with the resident(s), and reviewed entered orders. I agree with the plan of care as outlined in this note, with these additional summaries/recommendations: Patient seen at bedside. No acute overnight events. Today patient reports his right sided chest pain has resolved although is intermittent. In the emergency room patient underwent CTA chest to rule out pulmonary embolism. CTA was negative for pulmonary embolism but did reveal scattered areas of cavitary disease throughout the right lung. Patient on isolation precautions. Rule out active tuberculosis. Coccidioidomycosis IgM negative. Imaging reviewed with in- house pulmonology reports findings are most likely related to previous exposure causing ILD versus emphysematic versus cocci versus least likely active tuberculosis. Nonetheless active tuberculosis needs to be ruled out before patient can safely be discharged to the community. Follow-up tuberculosis studies. A1C returned 7.2% and patient informed he is no longer prediabetic and meets criteria for diabetes mellitus type II. Continue insulin sliding scale with Accu-Cheks. Target blood sugar of 140-180 while hospitalized. Repeat hematology and chemistry panel in AM. Dr. Corey MD
[2024-07-06 14:55] LABS: Cocci Serology, IgG Negative (Negative)
[2024-07-06] MEDS: ATORVASTATIN CALCIUM 20 MG TABLET 80 MG PO (20:49)
[2024-07-07] VITALS (11 sets, daily range): BP systolic 96–147; BP diastolic 63–97; PULSE 76–96; RESP 16–19; TEMP 36.1–36.6; O2SAT 95–98
[2024-07-07 05:33] LABS: Basophils # (Auto) 0.1 Thou/mm3 (0.0-0.2); Basophils % (Auto) 1 % (0-2.5); Eosinophils # (Auto) 0.1 Thou/mm3 (0.0-0.5); Eosinophils % (Auto) 1 % (0-10); Hematocrit 40.2 % (41.0-53.0); Hemoglobin 12.2 g/dL (13.5-16.0); Immature Granulocytes % (Auto) 0 % (0-0); Immature Granulocytes Auto 0.02 Thou/mm3 (0.00-0.00); Lymphocytes # (Auto) 1.6 Thou/mm3 (1.0-4.8); Lymphocytes % (Auto) 32 % (10-50); Mean Corpuscular HGB Conc 30.3 g/dl (31.0-37.0); Mean Corpuscular Hemoglobin 21.9 pg (25.0-35.0); Mean Corpuscular Volume 72 fL (80-100); Monocytes # (Auto) 0.5 Thou/mm3 (0.0-0.8); Monocytes % (Auto) 9 % (0-12); Neutrophils # (Auto) 2.9 Thou/mm3 (1.8-7.7); Neutrophils % (Auto) 57 % (37-80); Nucleated Red Blood Cell % 0 /100 WBC (0); Platelet Count 184 Thou/mm3 (140-440); RDW Standard Deviation 35.4 fL (35.1-43.9); Red Blood Count 5.57 Miln/mm3 (4.50-5.90); White Blood Count 5.1 Thou/mm3 (3.8-10.6)
[2024-07-07 06:21] LABS: Anion Gap 8 (7-16); BUN/Creatinine Ratio 19 Ratio (12-20); Blood Urea Nitrogen 21 mg/dL (9-23); Carbon Dioxide 27.9 mMol/L (20.0-31.0); Chloride 105 mMol/L (98-107); Creatinine (Component) 1.1 mg/dL (0.6-1.3); Estimated Creatinine Clearance 72.4 mL/min (>60); Glucose 125 mg/dL (74-106); Osmolality,Calculated 285 (275-295); Potassium 3.9 mMol/L (3.4-5.1); Sodium 141 mMol/L (136-145); eGFR > 60 See Note
[2024-07-07] MEDS: ENOXAPARIN SOD INJ 40 MG/0.4 ML SYRINGE SC (09:42)
[2024-07-07] MEDS: ASPIRIN EC 81 MG TABEC PO (09:42)
[2024-07-07] MEDS: SODIUM CHLORIDE 0.9% 1000 ML 1,000 ML 100 ML IV (09:42)
--- NOTE | 2024-07-07 10:58 | CHAP ---
Patient was visited by a Spiritual Care Volunteer on 07/07/2024 between 0900 and 0948 and received comfort, encouragement, and/or prayer.
--- NOTE | 2024-07-07 11:00 | PC.NURSE ---
NS 1000 ml rate of 100 ml/hr x1 per Dr. Flowers, order clarified and carried out.
[2024-07-07 11:25] LABS: Cult AFB Sendout- Sputum* See Sep Rpt
[2024-07-07] MEDS: INSULIN LISPRO (AdmeLOG) 1 UNIT/0.01 ML UNIT SC (12:05)
--- NOTE | 2024-07-07 14:54 | ESPR_ITS ---
Documentation for date of: 07/07/24 Subjective Subjective Interval history: Patient examined at bedside today. No acute overnight events. He says he is doing well, not experiencing any shortness of breath or chest pain. Is wondering when he is a go home. No other complaints this time. Had a bowel movement yesterday. Exam Vital Signs Temp Pulse Resp BP Pulse Ox O2 Del Method 97.9 F 90 16 111/71 95 Room Air 07/07/24 12:00 07/07/24 12:00 07/07/24 12:00 07/07/24 12:00 07/07/24 12:00 07/07/24 12:00 Narrative Exam General: AAOx3, NAD, pleasant appearing male with blonde hair HEENT: Moist mucous membranes, conjunctiva clear, EOMI, PERRLA, some missing dentition Cardiovascular: S1, S2, radial pulses +2 bilat, RRR Pulmonary: CTAB bilat no cough, no wheezing GI: No tenderness to light or deep palpitation, no guarding, rigidity, rebound tenderness or distension Extremities: No presence of trace or pitting edema in lower extremities bilaterally, dorsalis pedis pulses +2 bilaterally, right shoulder tattoos, some possible ulcers/scabs seen on lower extremities bilaterally, significant prominence of distal end of ulna or pisiform bilaterally Back: Thoracic and lumbar spine midline, no evidence of trauma to back Neuro: AAOx3, no focal motor or sensory deficits in the UE or LE bilat Psych: Good judgement, thought and behavior. Cooperative Objective Labs 07/07/24 04:39 07/07/24 04:39 Labs: Laboratory Results - last 24 hr 07/05/24 07/07/24 05:55 04:39 WBC 5.1 RBC 5.57 Hgb 12.2 L Hct 40.2 L MCV 72 L MCH 21.9 L MCHC 30.3 L RDW Std Deviation 35.4 Plt Count 184 Neut % (Auto) 57 Lymph % (Auto) 32 [place] % (Auto) 9 Eos % (Auto) 1 Baso % (Auto) 1 Neut # (Auto) 2.9 Lymph # (Auto) 1.6 [place] # (Auto) 0.5 Eos # (Auto) 0.1 Baso # (Auto) 0.1 Immature Gran # (Auto) 0.02 H Absolute Nucleated RBC 0.00 Immature Gran % 0 Nucleated RBC % 0 Sodium 141 Potassium 3.9 Chloride 105 Carbon Dioxide 27.9 Anion Gap 8 BUN 21 Creatinine 1.1 Estim Creat Clear Calc 72.4 eGFR > 60 BUN/Creatinine Ratio 19 Glucose 125 H Calculated Osmolality 285 Calcium 9.0 Coccidioides IgG Ab Negative Quality Measures Quality Measures VTE prophylaxis Assessment & Plan Assessment Current Active Medications: Generic Name Dose Route Start Last Admin Trade Name Freq PRN Reason Stop Dose Admin Acetaminophen 1,000 mg 07/04/24 14:32 Acetaminophen 500 Mg Tablet PO 08/03/24 14:31 Q6H PRN Fever >100 or pain 1-3 Albuterol/Ipratropium 3 ml 07/04/24 14:32 Albuterol/Ipratropium (Duoneb) Rt Belén 3 Ml Nebu INH 08/03/24 14:31 Q6HRRT PRN SHORTNESS OF BREATH OR WHEEZE Aspirin 81 mg 07/05/24 09:00 07/07/24 09:42 Aspirin Ec 81 Mg Tabec PO 08/04/24 08:59 81 mg QDAY MICHEL Administration Atorvastatin Calcium 80 mg 07/05/24 21:00 07/06/24 20:49 Atorvastatin Calcium 20 Mg Tablet PO 08/04/24 20:59 80 mg HS MICHEL Administration Dextrose 50 ml 07/04/24 14:35 Dextrose 50%-Water Inj 50 Ml Syringe IV 08/03/24 14:34 Q15MIN PRN BG <50 OR BG <70 & pt unresponsive Enoxaparin Sodium 40 mg 07/05/24 09:00 07/07/24 09:42 Enoxaparin Sod Inj 40 Mg/0.4 Ml Syringe SC 07/19/24 08:59 40 mg QDAY MICHEL Administration Glucagon 1 mg 07/04/24 14:35 Glucagon Inj 1 Mg Vial IM Q15MIN PRN BG <70, and no IV access Sodium Chloride 1,000 mls @ 100 mls/hr 07/07/24 08:05 07/07/24 09:42 Ns IV 08/06/24 08:04 100 mls/hr .Q10H MICHEL Administration Insulin Human Lispro 0 unit 07/04/24 17:00 07/07/24 12:05 Insulin Lispro (Admelog) 1 Unit/0.01 Ml Unit SC 08/03/24 16:59 1 unit AC MICHEL Administration Protocol Ondansetron HCl 4 mg 07/04/24 14:32 Ondansetron Inj 2 Mg/Ml Inj 2 Ml IV 08/03/24 14:31 Q6H PRN NAUSEA OR VOMITING Protocol Sennosides 1 tab 07/04/24 14:32 Senna Tablet PO 08/03/24 14:31 QDAY PRN constipation Protocol Plan Assessment Harshad is a 58-year-old male with past medical history of hypertension, hyperlipidemia, prediabetes who comes for evaluation of cavitary lesions in the right lobe and TB rule out. #TB rule out #Cavitary lesion DDx: Cocci, TB, bleb, abscess, aspergillus, berylliosis, emphysema Risk factors: Used to live in [facility] until 9 years old Travel history: Has not traveled back to [facility] since 2004. 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 Pulmonology consulted, appreciate recs ? Infectious disease consulted, appreciate recs ? AFBs x 3, follow-up ? QuantiFERON pending, follow-up ? Airborne precautions #History of hypertension #History of diabetes mellitus type 2 #History of HLD #Hypertriglyceridemia #History of right bundle branch block Triglycerides 237, total cholesterol 268, LDL 172, A1c of 7.2 ASCVD recommends high intensity statin Patient will need outpatient diabetes medicine, cannot tolerate metformin due to nausea, will likely send with Jany Plan: ? Continue Lipitor 80 mg at bedtime ? Sliding scale insulin ? Hypoglycemic protocol in place ? Blood sugar checks with meals ? Will holding blood pressure medicine at this time due to blood pressure being a little low this morning ? Continue with home ASA #Health Maintenance Disposition: MedSurg DVT prophylaxis: Lovenox GI prophylaxis: None indicated at this time Diet: Carb consistent low CODE STATUS: Full Patient seen and care discussed with my senior resident, Dr. Miller, and my attending physician, Dr. Corey Barnes, PGY-1 LPatient examined and case discussed with the team including attending physician. Note reviewed, I agree with the care plan as documented. Mr Salinas is a 58-year-old male with past medical history of hypertension, hyperlipidemia, prediabetes who comes for evaluation of RT sided cavitary lesions noted of CT chest. Patient was admitted for TB r/o, placed on isolation precautions. Imaging reviewed with Dry End Tester Dr Borrero, appreciate recommendations, likely exposure to chemicals causing ILD versus emphysema versus possible tuberculosis. A1C returned 7.2% and patient informed he is no longer prediabetic and meets criteria for diabetes mellitus type II. Cocci serology negative. Plan: - Pending TB AFB cultures and QF testing. Pending ID recommendations. - Continue insulin sliding scale with Accu-Checks. Target blood sugar of 140- 180 while hospitalized. - Dixon Miller MD, PGY 2 Disclaimer: The document below may not be free of grammatical/phonetic/typographic errors due to use of voice recognition software. This does not dissuade from the commitment to providing health care with the patient's best interest in mind. L Attending Provider Attestation/Addendum I have examined the patient, reviewed labs and imaging findings, discussed the case with the resident(s), and reviewed entered orders. I agree with the plan of care as outlined in this note, with these additional summaries/recommendations: Patient seen at bedside. No acute overnight events. Today patient has no new symptoms to report. He states he feels well and is anxious for his TB results. In the emergency room patient underwent CTA chest to rule out pulmonary embolism. CTA was negative for pulmonary embolism but did reveal scattered areas of cavitary disease throughout the right lung. Patient on isolation precautions. Rule out active tuberculosis. Coccidioidomycosis IgM negative. Imaging reviewed with in-house pulmonology reports findings are most likely related to previous exposure causing ILD versus emphysematic changes versus cocci versus least likely active tuberculosis. Nonetheless active tuberculosis needs to be ruled out before patient can safely be discharged to the community. Follow-up tuberculosis studies. A1C returned 7.2% and patient informed he is no longer prediabetic and meets criteria for diabetes mellitus type II. Continue insulin sliding scale with Accu-Cheks. Target blood sugar of 140-180 while hospitalized. Repeat hematology and chemistry panel in AM. Dr. Corey MD
--- NOTE | 2024-07-07 15:10 | PC.SS ---
Patient is alert/oriented. Patient is here for TB R/o. Patient is in isolation. Patient upset because he wants to leave and be with family. He wanted to leave AMA earlier due to concerns for his mother. SS spoke to patient to discuss his concerns. Patient states his mother is elderly at 80 years old. She takes insulin. He is the main careprovider and he assists her with her medications. Patient's resides in the home but does not speak or read [place]. She speaks [place]. Patient also has a 17year old daughter and she speaks [place]. Discussed him verbally guiding his on what to do with the diabetic medications and insulin. Patient's mother does not need any refills at this time. Patient states he will be okay if it's just for a few more days. He wants to be with his family. Patient is agreeable to staying. There is no set date for discharge. They do not have any other family members in this area. They do not have any other friends that can assist his mother at home. SS also offered SNF for senior care care temporarily. Patient declined stating he would not want this option for her. SS will follow up with him in the morning. Patient PCP: Yue Martinez NP @ [facility].
--- NOTE | 2024-07-07 19:50 | PC.NURSE ---
Okay per Dr. Rao to hold off IV fluids. Per dayshift report the order for IV fluids was for 1 bag only.
[2024-07-07] MEDS: ATORVASTATIN CALCIUM 20 MG TABLET 80 MG PO (20:35)
[2024-07-07] MEDS: SODIUM CHLORIDE RT 10% 15 ML NEBU 5 ML INH (23:01)
[2024-07-07 23:29] LABS: Cult AFB Sendout- Sputum* See Sep Rpt
--- NOTE | 2024-07-07 23:35 | PC.NURSE ---
Pt complaining of SOB and chest pain. Pt reported to feel these symptoms after getting a breathing tx to induce a sputum. TELEVISION PARTS TESTER called to pt's room at [id number]. Pt reported to TELEVISION PARTS TESTER that the symptoms improved, HOB was elevated to 45 degrees. VS stable for pt.
--- NOTE | 2024-07-07 23:54 | PD.RESEVENT ---
Documentation for date of: 07/07/24 Event Note Event Note: Rapid response called for patient around 11:30 PM today for patient complaining of chest pain and diaphoretic. On evaluation patient denied any chest pain, patient complained that he felt difficulty breathing after he was given sodium chloride inhalation treatment for sputum induction, patient complained that he is unable to produce sputum and inhalational treatment for sputum induction causes him to feel short of breath and dizzy. On physical exam lungs bilaterally clear to auscultation, no wheezing or crackles noted, patient's SpO2 98 on room air, blood pressure within normal limits, patient expressed his frustration that he is asymptomatic and wishes that he could have been discharged, explained to the patient that he is currently undergoing workup to rule out tuberculosis, with tuberculosis being public health hazard, patient needs to complete workup prior to discharge. Patient verbalized understanding expressed his concern regarding sodium chloride inhalational treatment, will hold sputum induction for now, will reattempt in a.m. Case discussed with Attending Dr. Smallwood. Marissa Rao PGY1 Disclaimer: This note was dictated by speech recognition. Minor errors in mobile marketing specialist may be present due to voice recognition software.
[2024-07-08] VITALS (7 sets, daily range): BP systolic 105–140; BP diastolic 65–95; PULSE 74–96; RESP 17–19; TEMP 36.1–36.7; O2SAT 96–98
[2024-07-08 05:55] LABS: Basophils % (Auto) 1 % (0-2.5); Eosinophils # (Auto) 0.1 Thou/mm3 (0.0-0.5); Eosinophils % (Auto) 2 % (0-10); Hematocrit 39.3 % (41.0-53.0); Immature Granulocytes % (Auto) 0 % (0-0); Lymphocytes # (Auto) 1.6 Thou/mm3 (1.0-4.8); Lymphocytes % (Auto) 35 % (10-50); Mean Corpuscular HGB Conc 30.5 g/dl (31.0-37.0); Mean Corpuscular Hemoglobin 21.9 pg (25.0-35.0); Mean Corpuscular Volume 72 fL (80-100); Monocytes # (Auto) 0.4 Thou/mm3 (0.0-0.8); Monocytes % (Auto) 9 % (0-12); Neutrophils # (Auto) 2.5 Thou/mm3 (1.8-7.7); Neutrophils % (Auto) 54 % (37-80); Nucleated Red Blood Cell % 0 /100 WBC (0); Platelet Count 167 Thou/mm3 (140-440); RDW Standard Deviation 34.5 fL (35.1-43.9); Red Blood Count 5.49 Miln/mm3 (4.50-5.90); White Blood Count 4.7 Thou/mm3 (3.8-10.6)
[2024-07-08 06:21] LABS: Anion Gap 9 (7-16); BUN/Creatinine Ratio 15 Ratio (12-20); Blood Urea Nitrogen 17 mg/dL (9-23); Calcium 9.3 mg/dL (8.3-10.6); Carbon Dioxide 27.2 mMol/L (20.0-31.0); Chloride 108 mMol/L (98-107); Creatinine (Component) 1.1 mg/dL (0.6-1.3); Estimated Creatinine Clearance 72.4 mL/min (>60); Glucose 123 mg/dL (74-106); Osmolality,Calculated 289 (275-295); Potassium 4.2 mMol/L (3.4-5.1); Sodium 144 mMol/L (136-145); eGFR > 60 See Note
[2024-07-08] MEDS: ENOXAPARIN SOD INJ 40 MG/0.4 ML SYRINGE SC (08:20)
[2024-07-08] MEDS: ASPIRIN EC 81 MG TABEC PO (08:20)
--- NOTE | 2024-07-08 11:05 | ESPR_ITS ---
Documentation for date of: 07/08/24 Subjective Subjective Interval history: Patient examined at bedside today. Overnight events included patient having some discomfort with sputum induction for AFB sample yesterday. Patient reports he is doing well, is wondering when he can go home. He says that he has things to take care of at home and that he feels very well and that his abdominal and chest pain is gone. He has not felt short of breath. He also says that he will comply with wearing a mask at home if he is able to leave early. No other complaints at this time Exam Vital Signs Temp Pulse Resp BP Pulse Ox O2 Del Method 97.6 F 85 18 129/95 H 97 Room Air 07/08/24 08:00 07/08/24 08:00 07/08/24 08:00 07/08/24 08:00 07/08/24 08:00 07/08/24 08:00 Narrative Exam General: AAOx3, NAD, pleasant appearing male with blonde hair HEENT: Moist mucous membranes, conjunctiva clear, EOMI, PERRLA, some missing dentition Cardiovascular: S1, S2, radial pulses +2 bilat, RRR Pulmonary: CTAB bilat no cough, no wheezing GI: No tenderness to light or deep palpitation, no guarding, rigidity, rebound tenderness or distension Extremities: No presence of trace or pitting edema in lower extremities bilaterally, dorsalis pedis pulses +2 bilaterally, right shoulder tattoos, some possible ulcers/scabs seen on lower extremities bilaterally, significant prominence of distal end of ulna or pisiform bilaterally Back: Thoracic and lumbar spine midline, no evidence of trauma to back Neuro: AAOx3, no focal motor or sensory deficits in the UE or LE bilat Psych: Good judgement, thought and behavior. Cooperative Objective Labs 07/08/24 05:25 07/08/24 05:25 Labs: Laboratory Results - last 24 hr 07/04/24 07/08/24 15:20 05:25 WBC 4.7 RBC 5.49 Hgb 12.0 L Hct 39.3 L MCV 72 L MCH 21.9 L MCHC 30.5 L RDW Std Deviation 34.5 L Plt Count 167 Neut % (Auto) 54 Lymph % (Auto) 35 [place] % (Auto) 9 Eos % (Auto) 2 Baso % (Auto) 1 Neut # (Auto) 2.5 Lymph # (Auto) 1.6 [place] # (Auto) 0.4 Eos # (Auto) 0.1 Baso # (Auto) 0.0 Immature Gran # (Auto) 0.00 Absolute Nucleated RBC 0.00 Immature Gran % 0 Nucleated RBC % 0 Sodium 144 Potassium 4.2 Chloride 108 H Carbon Dioxide 27.2 Anion Gap 9 BUN 17 Creatinine 1.1 Estim Creat Clear Calc 72.4 eGFR > 60 BUN/Creatinine Ratio 15 Glucose 123 H Calculated Osmolality 289 Calcium 9.3 Mycobacterial Culture See Sep Rpt Quality Measures Quality Measures VTE prophylaxis Assessment & Plan Assessment Current Active Medications: Generic Name Dose Route Start Last Admin Trade Name Freq PRN Reason Stop Dose Admin Acetaminophen 1,000 mg 07/04/24 14:32 Acetaminophen 500 Mg Tablet PO 08/03/24 14:31 Q6H PRN Fever >100 or pain 1-3 Albuterol/Ipratropium 3 ml 07/04/24 14:32 Albuterol/Ipratropium (Duoneb) Rt Belén 3 Ml Nebu INH 08/03/24 14:31 Q6HRRT PRN SHORTNESS OF BREATH OR WHEEZE Aspirin 81 mg 07/05/24 09:00 07/08/24 08:20 Aspirin Ec 81 Mg Tabec PO 08/04/24 08:59 81 mg QDAY MICHEL Administration Atorvastatin Calcium 80 mg 07/05/24 21:00 07/07/24 20:35 Atorvastatin Calcium 20 Mg Tablet PO 08/04/24 20:59 80 mg HS MICHEL Administration Dextrose 50 ml 07/04/24 14:35 Dextrose 50%-Water Inj 50 Ml Syringe IV 08/03/24 14:34 Q15MIN PRN BG <50 OR BG <70 & pt unresponsive Enoxaparin Sodium 40 mg 07/05/24 09:00 07/08/24 08:20 Enoxaparin Sod Inj 40 Mg/0.4 Ml Syringe SC 07/19/24 08:59 40 mg QDAY MICHEL Administration Glucagon 1 mg 07/04/24 14:35 Glucagon Inj 1 Mg Vial IM Q15MIN PRN BG <70, and no IV access Sodium Chloride 1,000 mls @ 100 mls/hr 07/07/24 08:05 07/07/24 09:42 Ns IV 08/06/24 08:04 100 mls/hr .Q10H MICHEL Administration Insulin Human Lispro 0 unit 07/04/24 17:00 07/08/24 07:28 Insulin Lispro (Admelog) 1 Unit/0.01 Ml Unit SC 08/03/24 16:59 Not Given AC MICHEL Protocol Ondansetron HCl 4 mg 07/04/24 14:32 Ondansetron Inj 2 Mg/Ml Inj 2 Ml IV 08/03/24 14:31 Q6H PRN NAUSEA OR VOMITING Protocol Sennosides 1 tab 07/04/24 14:32 Senna Tablet PO 08/03/24 14:31 QDAY PRN constipation Protocol Plan Assessment Harshad is a 58-year-old male with past medical history of hypertension, hyperlipidemia, prediabetes who comes for evaluation of cavitary lesions in the right lobe and TB rule out. #TB rule out #Cavitary lesion DDx: Cocci, TB, bleb, abscess, aspergillus, berylliosis, emphysema Risk factors: Used to live in [facility] until 9 years old Travel history: Has not traveled back to [facility] since 2004. 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 Pulmonology consulted, appreciate recs ? Infectious disease consulted, appreciate recs ? AFBs x 2, follow-up ? QuantiFERON pending, follow-up ? Airborne precautions #History of hypertension #History of diabetes mellitus type 2 #History of HLD #Hypertriglyceridemia #History of right bundle branch block Triglycerides 237, total cholesterol 268, LDL 172, A1c of 7.2 ASCVD recommends high intensity statin Patient will need outpatient diabetes medicine, cannot tolerate metformin due to nausea, will likely send with Jany Plan: ? Continue Lipitor 80 mg at bedtime ? Sliding scale insulin ? Hypoglycemic protocol in place ? Blood sugar checks with meals ? Will holding blood pressure medicine at this time due to blood pressure being a little low this morning ? Continue with home ASA #Health Maintenance Disposition: MedSurg DVT prophylaxis: Lovenox GI prophylaxis: None indicated at this time Diet: Carb consistent low CODE STATUS: Full Patient seen and care discussed with my senior resident, Dr. Miller, and my attending physician, Dr. Star Barnes, PGY-1 LPatient examined and case discussed with the team including attending physician. Note reviewed, I agree with the care plan as documented. Mr Salinas is a 58-year-old male with past medical history of hypertension, hyperlipidemia, prediabetes who comes for evaluation of RT sided cavitary lesions noted of CT chest. Patient was admitted for TB r/o, placed on isolation precautions. Imaging reviewed with Security Assistant Dr Borrero, appreciate recommendations, likely exposure to chemicals causing ILD versus emphysema versus possible tuberculosis. A1C returned 7.2% and patient informed he is no longer pre-diabetic and meets criteria for diabetes mellitus type II. Cocci serology negative. Plan: - AFB sample x1 negative. Awaiting TB AFB culture results x2 - Follow up QF results, likely to reach by Saturday. Pending ID recommendations. - Continue insulin sliding scale with Accu-Checks. Target blood sugar of 140- 180 while hospitalized. - Patient counseled, is very anxious re: mother who is a dependent. Will re- evaluate DC with ID once QF back. - Dixon Miller MD, PGY 2 Disclaimer: The document below may not be free of grammatical/phonetic/typographic errors due to use of voice recognition software. This does not dissuade from the commitment to providing health care with the patient's best interest in mind. L Attending Provider Attestation/Addendum I have discussed and was present for the essential components of the history, physical examination, diagnosis, and treatment plan with the resident. I agree with the patient's care as documented by the resident and amended herein by me. Baljinder Graves DO. Although this document has been carefully reviewed, there may still be some phonetic and other typographical errors. These errors are purely grammatical due to imperfections in the software program and should not be construed in any way to compromise the substance of the patient's medical care during this visit.
[2024-07-08] MEDS: ATORVASTATIN CALCIUM 20 MG TABLET 80 MG PO (20:07)
[2024-07-09] VITALS (8 sets, daily range): BP systolic 111–145; BP diastolic 69–96; PULSE 69–88; RESP 15–18; TEMP 36.1–36.4; O2SAT 96–98
[2024-07-09 05:58] LABS: Basophils % (Auto) 1 % (0-2.5); Eosinophils # (Auto) 0.1 Thou/mm3 (0.0-0.5); Eosinophils % (Auto) 2 % (0-10); Hematocrit 40.9 % (41.0-53.0); Hemoglobin 12.6 g/dL (13.5-16.0); Immature Granulocytes % (Auto) 0 % (0-0); Immature Granulocytes Auto 0.02 Thou/mm3 (0.00-0.00); Lymphocytes # (Auto) 1.7 Thou/mm3 (1.0-4.8); Lymphocytes % (Auto) 35 % (10-50); Mean Corpuscular HGB Conc 30.8 g/dl (31.0-37.0); Mean Corpuscular Hemoglobin 22.3 pg (25.0-35.0); Mean Corpuscular Volume 72 fL (80-100); Monocytes # (Auto) 0.5 Thou/mm3 (0.0-0.8); Monocytes % (Auto) 9 % (0-12); Neutrophils # (Auto) 2.6 Thou/mm3 (1.8-7.7); Neutrophils % (Auto) 52 % (37-80); Nucleated Red Blood Cell % 0 /100 WBC (0); Platelet Count 209 Thou/mm3 (140-440); RDW Standard Deviation 35.5 fL (35.1-43.9); Red Blood Count 5.66 Miln/mm3 (4.50-5.90); White Blood Count 4.9 Thou/mm3 (3.8-10.6)
[2024-07-09 06:23] LABS: Albumin, Serum 4.3 gm/dL (3.5-5.0); Anion Gap 9 (7-16); BUN/Creatinine Ratio 21 Ratio (12-20); Blood Urea Nitrogen 23 mg/dL (9-23); Calcium 9.2 mg/dL (8.3-10.6); Calcium (Corrected) 9.2 mg/dL (8.5-10.1); Carbon Dioxide 27.8 mMol/L (20.0-31.0); Chloride 106 mMol/L (98-107); Creatinine (Component) 1.1 mg/dL (0.6-1.3); Estimated Creatinine Clearance 72.4 mL/min (>60); Glucose 119 mg/dL (74-106); Osmolality,Calculated 289 (275-295); Phosphorous 3.2 mg/dL (2.4-5.1); Potassium 3.8 mMol/L (3.4-5.1); Sodium 143 mMol/L (136-145); eGFR > 60 See Note
[2024-07-09 08:32] LABS: Carcinoembryonic Antigen 1.1 ng/mL (0.0-5.0)
[2024-07-09] MEDS: ASPIRIN EC 81 MG TABEC PO (08:45)
[2024-07-09] MEDS: ATORVASTATIN CALCIUM 20 MG TABLET 80 MG PO (20:24)
--- NOTE | 2024-07-09 21:38 | PD.RESPRO ---
Documentation for date of: 07/09/24 Subjective Subjective Interval history: Patient examined at bedside today. No acute overnight events. Patient is requesting to go home and says that he has to take care of things at home. He has no shortness of breath or chest pain. Is wondering when he is going to leave. No other complaints at this time. Exam Vital Signs Temp Pulse Resp BP Pulse Ox O2 Del Method 97.3 F 88 16 132/84 H 97 Room Air 07/09/24 20:00 07/09/24 20:00 07/09/24 20:00 07/09/24 20:00 07/09/24 20:00 07/09/24 20:00 Narrative Exam General: AAOx3, NAD, pleasant appearing male with blonde hair HEENT: Moist mucous membranes, conjunctiva clear, EOMI, PERRLA, some missing dentition Cardiovascular: S1, S2, radial pulses +2 bilat, RRR Pulmonary: CTAB bilat no cough, no wheezing GI: No tenderness to light or deep palpitation, no guarding, rigidity, rebound tenderness or distension Extremities: No presence of trace or pitting edema in lower extremities bilaterally, dorsalis pedis pulses +2 bilaterally, right shoulder tattoos, some possible ulcers/scabs seen on lower extremities bilaterally, significant prominence of distal end of ulna or pisiform bilaterally Back: Thoracic and lumbar spine midline, no evidence of trauma to back Neuro: AAOx3, no focal motor or sensory deficits in the UE or LE bilat Psych: Good judgement, thought and behavior. Cooperative Objective Labs 07/09/24 05:32 07/09/24 05:32 Labs: Laboratory Results - last 24 hr 07/06/24 07/07/24 07/09/24 09:10 11:00 05:32 WBC 4.9 RBC 5.66 Hgb 12.6 L Hct 40.9 L MCV 72 L MCH 22.3 L MCHC 30.8 L RDW Std Deviation 35.5 Plt Count 209 D Neut % (Auto) 52 Lymph % (Auto) 35 [place] % (Auto) 9 Eos % (Auto) 2 Baso % (Auto) 1 Neut # (Auto) 2.6 Lymph # (Auto) 1.7 [place] # (Auto) 0.5 Eos # (Auto) 0.1 Baso # (Auto) 0.0 Immature Gran # (Auto) 0.02 H Absolute Nucleated RBC 0.00 Immature Gran % 0 Nucleated RBC % 0 Sodium 143 Potassium 3.8 Chloride 106 Carbon Dioxide 27.8 Anion Gap 9 BUN 23 Creatinine 1.1 Estim Creat Clear Calc 72.4 eGFR > 60 BUN/Creatinine Ratio 21 H Glucose 119 H Calculated Osmolality 289 Calcium 9.2 Corrected Calcium 9.2 Phosphorus 3.2 Albumin 4.3 Tumor Marker AFP 3.10 Carcinoembryonic Ag 1.1 Mycobacterial Culture See Sep Rpt TB Test (QFT) See Sep Rpt Quality Measures Quality Measures VTE prophylaxis Assessment & Plan Assessment Current Active Medications: Generic Name Dose Route Start Last Admin Trade Name Freq PRN Reason Stop Dose Admin Acetaminophen 1,000 mg 07/04/24 14:32 Acetaminophen 500 Mg Tablet PO 08/03/24 14:31 Q6H PRN Fever >100 or pain 1-3 Albuterol/Ipratropium 3 ml 07/04/24 14:32 Albuterol/Ipratropium (Duoneb) Rt Belén 3 Ml Nebu INH 08/03/24 14:31 Q6HRRT PRN SHORTNESS OF BREATH OR WHEEZE Aspirin 81 mg 07/05/24 09:00 07/09/24 08:45 Aspirin Ec 81 Mg Tabec PO 08/04/24 08:59 81 mg QDAY MICHEL Administration Atorvastatin Calcium 80 mg 07/05/24 21:00 07/09/24 20:24 Atorvastatin Calcium 20 Mg Tablet PO 08/04/24 20:59 80 mg HS MICHEL Administration Dextrose 50 ml 07/04/24 14:35 Dextrose 50%-Water Inj 50 Ml Syringe IV 08/03/24 14:34 Q15MIN PRN BG <50 OR BG <70 & pt unresponsive Enoxaparin Sodium 40 mg 07/05/24 09:00 07/09/24 08:46 Enoxaparin Sod Inj 40 Mg/0.4 Ml Syringe SC 07/19/24 08:59 Not Given QDAY MICHEL Glucagon 1 mg 07/04/24 14:35 Glucagon Inj 1 Mg Vial IM Q15MIN PRN BG <70, and no IV access Insulin Human Lispro 0 unit 07/04/24 17:00 07/09/24 16:34 Insulin Lispro (Admelog) 1 Unit/0.01 Ml Unit SC 08/03/24 16:59 Not Given AC MICHEL Protocol Ondansetron HCl 4 mg 07/04/24 14:32 Ondansetron Inj 2 Mg/Ml Inj 2 Ml IV 08/03/24 14:31 Q6H PRN NAUSEA OR VOMITING Protocol Sennosides 1 tab 07/04/24 14:32 Senna Tablet PO 08/03/24 14:31 QDAY PRN constipation Protocol Plan Assessment Harshad is a 58-year-old male with past medical history of hypertension, hyperlipidemia, prediabetes who comes for evaluation of cavitary lesions in the right lobe and TB rule out. #TB rule out #Cavitary lesion DDx: Cocci, TB, bleb, abscess, aspergillus, berylliosis, emphysema Risk factors: Used to live in [facility] until 9 years old Travel history: Has not traveled back to [facility] since 2004. 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 BCG vaccine: None CTA Chest: Scattered areas of cavitary disease throughout right lung This could be chronic cocci, or could be related to exposure of metals, or other infectious process Will need to rule out TB regardless, he does deny having night sweats weight loss QuantiFERON gold indeterminate Cocci IgM and IgG negative Once found likely not to come back until Saturday, however will talk with infectious disease for further recs Two AFBs negative Spoke with to [facility] [place], will get back to me on if patient can be discharged early before next sample comes out Spoke with pulmonology, are okay with discharge at this time Plan: ? Pulmonology consulted, appreciate recs ? Infectious disease consulted, appreciate recs ? AFBs x 1, follow-up ? QuantiFERON pending, follow-up ? Airborne precautions #History of hypertension #History of diabetes mellitus type 2 #History of HLD #Hypertriglyceridemia #History of right bundle branch block Triglycerides 237, total cholesterol 268, LDL 172, A1c of 7.2 ASCVD recommends high intensity statin Patient will need outpatient diabetes medicine, cannot tolerate metformin due to nausea, will likely send with Jany Plan: ? Continue Lipitor 80 mg at bedtime ? Sliding scale insulin ? Hypoglycemic protocol in place ? Blood sugar checks with meals ? Will holding blood pressure medicine at this time due to blood pressure being a little low this morning ? Continue with home ASA #Health Maintenance Disposition: MedSurg DVT prophylaxis: Lovenox GI prophylaxis: None indicated at this time Diet: Carb consistent low CODE STATUS: Ful codel Patient seen and care discussed with my senior resident, Dr. Miller, and my attending physician, Dr. Star Barnes, PGY-1 Patient examined and case discussed with the team including attending physician. Note reviewed, I agree with the care plan as documented. Mr Salinas is a 58-year-old male with past medical history of hypertension, hyperlipidemia, prediabetes who comes for evaluation of RT sided cavitary lesions noted of CT chest. Patient was admitted for TB r/o, placed on isolation precautions. Imaging reviewed with Computer Operations Analyst Dr Borrero, appreciate recommendations, likely exposure to chemicals causing ILD versus emphysema versus possible tuberculosis. A1C returned 7.2% and patient informed he is no longer pre-diabetic and meets criteria for diabetes mellitus type II. Cocci serology negative. Plan: - QF : negative - AFB sample x2 : negative. - Awaiting TB AFB culture results x1 - Continue insulin sliding scale with Accu-Checks. Target blood sugar of 140-180 while hospitalized. - Patient counseled, is very anxious re: mother who is a dependent. - Dixon Miller MD, PGY 2 Disclaimer: The document may contain phonetic/typographic errors due to voice recognition software. These errors are purely due to imperfections in the software program and should not be misconstrued in any way to compromise the substance of the patient's medical care during this visit. Attending Provider Attestation/Addendum I have discussed and was present for the essential components of the history, physical examination, diagnosis, and treatment plan with the resident. I agree with the patient's care as documented by the resident and amended herein by me. Baljinder Graves, DO. Although this document has been carefully reviewed, there may still be some phonetic and other typographical errors. These errors are purely grammatical due to imperfections in the software program and should not be construed in any way to compromise the substance of the patient's medical care during this visit.
[2024-07-10] VITALS: BP 98/73; PULSE 92; RESP 18; TEMP 36.5; O2SAT 94
[2024-07-10 04:00] VITALS: BP 110/67; PULSE 81; RESP 15; TEMP 36.3; O2SAT 95
--- NOTE | 2024-07-10 07:26 | PC.IP ---
Pt. has 3 negative AFBs results from [facility]. Pt. can be removed from Airborne Precautions. Dr. Miller notified of AFBs results
--- NOTE | 2024-07-10 07:59 | PD.RESDS ---
Planned Discharge Date 07/10/24 DS: Providers Provider Date of admission: 07/04/24 10:11 Primary care physician: Yue Martinez NP Admitting Provider: Brayan Nicole MD Attending Provider on Admission: Calin Graves DO Consults: 07/05/24 07:53 Referral Registered Dietitian Routine Comment: A1c 7.2% 07/09/24 09:53 Consult to Infectious Diseases Stat Comment: tb r/o, neg AFB x2, indetermined quantiferon Consulting Provider: Holden Bowers Attending Provider on DC: Calin Graves DO Discharging Provider: Dixon Miller MD DS: Diagnosis Discharge Diagnosis (1) Pulmonary cavitary lesion: Status: Acute (2) Atypical chest pain: Status: Acute Problem List Completed Was Problem List Reviewed/Reconciled?: Yes Hospital Course Hospital Course Hospital course: Hospital Course: Mr Salinas is a 58-year-old male with past medical history of hypertension, hyperlipidemia, prediabetes who comes for evaluation of RT sided cavitary lesions noted of CT chest. Patient was admitted for TB r/o, placed on isolation precautions. Imaging reviewed with Mobile Phlebotomist Dr Borrero, appreciate recommendations, likely exposure to chemicals causing ILD versus emphysema versus possible tuberculosis. A1C returned 7.2% and patient informed he is no longer pre-diabetic and meets criteria for diabetes mellitus type II. Cocci serology negative. QF gold returned negative and AFB sample x3 were also negative. He was treated with insulin sliding scale with Accu-Checks in hospital the T2DM, diabetes education provided. He will be started on Januvia upon discharge for optimization, as he declined Metformin due to history of side effects. Problems on this admission: - RT lung multiple cavitary lesion : TB and cocci ruled out - - Primary hypertension - Type 2 NIDDM, uncontrolled. A1c 7.2% - History of HLD - Hypertriglyceridemia - History of right bundle branch block Procedures: None Discharge instructions: - Follow up with PCP within 1 week from discharge. Call [phone] for an appointment - Your blood glucose is high, A1c 7.2% - Start Januvia 50mg daily to treat the diabetes. - You will need a referral to see a Mobile Phlebotomist for the cavitary lesions in your right lung - May take albuterol inhaler 2 puffs as needed, up to 4 times a day, for wheezing or chest tightness or shortness of breath - Return to ED if symptoms worsen We are grateful to be able to participate in Mr Salinas's care. We wish him the best. - Dixon Miller MD Status at Discharge Cognitive/behavioral status at discharge: Stable and returned to baseline. Time Spent with Patient Time attestation: Total time spent providing and/or coordinating discharge services: more than 50% Exam Vital Signs Temp Pulse Resp BP Pulse Ox O2 Del Method 97.4 F 81 15 110/67 95 Room Air 07/10/24 04:00 07/10/24 04:00 07/10/24 04:00 07/10/24 04:00 07/10/24 04:00 07/10/24 04:00 Narrative Exam General: AAOx3, NAD, pleasant appearing male with blonde hair HEENT: Moist mucous membranes, conjunctiva clear, EOMI, PERRLA, some missing dentition Cardiovascular: S1, S2, radial pulses +2 bilat, RRR Pulmonary: CTAB bilat no cough, no wheezing GI: No tenderness to light or deep palpitation, no guarding, rigidity, rebound tenderness or distension Extremities: No presence of trace or pitting edema in lower extremities bilaterally, dorsalis pedis pulses +2 bilaterally, right shoulder tattoos, some possible ulcers/scabs seen on lower extremities bilaterally, significant prominence of distal end of ulna or pisiform bilaterally Back: Thoracic and lumbar spine midline, no evidence of trauma to back Neuro: AAOx3, no focal motor or sensory deficits in the UE or LE bilat Psych: Good judgement, thought and behavior. Cooperative Discharge Plan Plan Patient Disposition: HOME (Self Care) Patient condition on transfer: Stable Care Plan Goals: - Follow up with PCP within 1 week from discharge. Call [phone] for an appointment - Your blood glucose is high, A1c 7.2% - Start Januvia 50mg daily to treat the diabetes. - You will need a referral to see a Mobile Phlebotomist for the cavitary lesions in your right lung - May take albuterol inhaler 2 puffs as needed, up to 4 times a day, for wheezing or chest tightness or shortness of breath - Return to ED if symptoms worsen Prescriptions/Referrals Prescriptions/Med Rec: New albuterol sulfate 90 mcg/actuation HFA aerosol inhaler 2 inh inhalation QID PRN (Reason: shortness of breath or wheezing) Qty: 6.7 0RF Januvia 50 mg tablet 50 mg PO QDAY 30 Days Qty: 30 1RF Continued aspirin 81 mg tablet,chewable 81 mg PO QDAY lisinopril 10 mg tablet 10 mg PO QDAY atorvastatin 40 mg tablet 40 mg PO QPM Kerendia 10 mg tablet 10 mg PO QDAY Referrals: Yue Martinez, RIB BUILDER [Primary Care Provider] - Patient/Caregiver Discharge Instructions Discharge Activity: resume usual activities Education Materials: Chest and Lung Problems Print Language: Emirati Stand Alone Forms: Alina Award Info., Patient Portal Info Letter Discharge Order Discharge Orders: Discharge (Routine); Ordered 07/10/24 Ordered By: Dixon Miller Quality Discharge Quality Measures VTE prophylaxis MD Attestestation Attestation I have discussed and was present for the essential components of the discharge history, physical examination, diagnosis, and discharge treatment plan with the resident. I agree with the patient's discharge care as documented by the resident and amended herein by me. Baljinder Graves DO. The patient understood all discharge instructions, all questions were answered satisfactorily. The patient was instructed to return to the Emergency Department is symptoms worsened or persisted. AFBs negative x 3, patient felt well, all questions answered satisfactorily. Please see resident note above for additional details in regards to hospital stay. Although this document has been carefully reviewed, there may still be some phonetic and other typographical errors. These errors are purely grammatical due to imperfections in the software program and should not be construed in any way to compromise the substance of the patient's medical care during this visit.
[2024-07-10 08:00] VITALS: BP 134/92; PULSE 98; RESP 18; TEMP 36.2; O2SAT 95
[2024-07-10] MEDS: ENOXAPARIN SOD INJ 40 MG/0.4 ML SYRINGE SC (08:26)
[2024-07-10] MEDS: sitaGLIPtin PHOSPHATE 50 MG TABLET PO (08:26)
[2024-07-10] MEDS: ASPIRIN EC 81 MG TABEC PO (08:26)
--- NOTE | 2024-07-10 08:42 | PD.IDPROG ---
Subjective Subjective Interval history: asked to see. cocci neg. qtf inconclusive. this does not mean almost positive but rather that test did not run correctly, the lesions may be due to old cocci but can also be seen with regular infection. qtf can and should be repeated as outpt. no current indication for preventive rx as qtf not positive but equivocal. Exam Vital Signs Temp Pulse Resp BP Pulse Ox O2 Del Method 97.1 F 98 18 134/92 H 95 Room Air 07/10/24 08:00 07/10/24 08:00 07/10/24 08:00 07/10/24 08:00 07/10/24 08:00 07/10/24 08:00 Narrative Exam benign exam. with him. advised him that afb's neg Objective - Internal Medicine Labs 07/09/24 05:32 07/09/24 05:32 Labs: Laboratory Results - last 24 hr 07/07/24 23:08 Mycobacterial Culture See Sep Rpt Assessment & Plan A&P Narrative reported cavitary lung process on imaging with neg cocci and neg afb's. afebrile. hld htn dm II, a1c 7.2 noted. pt does not have active tb and has dm and other health issues he is here for cp. he is only 58, but may need outpt bal to r/o CA as a contributor to cavitary disease, but he has no sx to suggest CA repeat chest imaging in 2-4 weeks please. cxr neg 06/28. afebrile throughout course f/u with outpt primary. can see health dept if tb shows on cx in 5-6 weeks or sooner. no known tb exposures or pos tests noted in past. 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 Time Spent With Patient Time: Total time spent is greater than 50% in coordination of care (as documented) at patient's floor/unit and/or counseling patient:
--- NOTE | 2024-07-10 10:43 | CHAP ---
Patient expressed gratitude for visit and prayer.
[2024-07-10 11:27] VITALS: PULSE 122; RESP 18; O2SAT 98
--- NOTE | 2024-07-10 11:37 | ESCONSULT_ITS ---
RE: MICHAEL GHOSH : 1965 DATE OF CONSULTATION: 07/10/2024 REFERRING PHYSICIAN: Dr. Nicole and [facility]. REASON FOR CONSULTATION: Rule out TB and chest pain in a borderline diabetic. HISTORY OF PRESENT ILLNESS: The patient has diabetes and hyperlipidemia and heart disease. He is followed by others for the most part and came in because of some nonspecific symptoms. He does not have a cough. He has no weight loss, no fevers, chills, sweats, and no productive sputum or hemoptysis. He is described by radiology as having cavitary lung disease on CT, although regular chest x-ray was benign. He reports no prior surgery. ALLERGIES: NONE NOTED. IMMUNIZATIONS: Last tetanus is not known. He has had a flu shot about every year and COVID vaccine three times. He is not a routine candidate for pneumococcal vaccination. FAMILY HISTORY: Positive for diabetes in his mother. SOCIAL HISTORY: Lives with his , his mother, and a daughter. He has no TB exposure, testing, or treatment. 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 PHYSICAL EXAMINATION: His exam is benign. ASSESSMENT AND PLAN: Equivocal QuantiFERON. This does not mean almost positive. It rather means that the test is not running correctly. It can be repeated as an outpatient at a later time. If you repeat it now, it may simply be the same result. I would not repeat it before he goes home. Simply let him go because AFB smears are negative. If he stays through the weekend, I leave that up to you, but there is no indication for any treatment. Indeed, he may benefit from an outpatient bronchoscopy if there is a concern, but ideally you would repeat his x-ray in 4- 6 weeks first. Unless there is an infiltrate, then there may not be a value to a pulmonary evaluation. I will check on him if he remains, but if he goes home, there is no need for outpatient infectious disease follow up. He can follow up with pulmonary as needed, but repeat the x-ray in 4-6 weeks first. DT: 09:29:54 TT: 10:49:00 Ref: [id number] - TID: [id number] [facility]
[2024-07-14 06:38] LABS: CA 19-9 Antigen* 20 U/mL (<34)
== END 2024-07-10 11:50 | disposition home or self-care (01) | DRG 144 ==
LOC: SERX 08:58 → SERHOLD 10:41 → S3SX 12:37
PROVIDERS: Nurse Practitioner Primary Care; Physician Assistant; Student in an Organized Health Care Education/Training Program; Admitting Provider Student in an Organized Health Care Education/Training Program; Emergency Provider Emergency Medicine; PCP Nurse Practitioner Family; Visit Provider Student in an Organized Health Care Education/Training Program
DX: R91.1 Solitary pulmonary nodule (principal); E11.9 Type 2 diabetes mellitus without complications; E78.1 Pure hyperglyceridemia; I10 Essential (primary) hypertension; I45.10 Unspecified right bundle-branch block; I25.10 Atherosclerotic heart disease of native coronary artery without angina pectoris; R07.89 Other chest pain; M54.9 Dorsalgia, unspecified; Z79.82 Long term (current) use of aspirin; Z79.899 Other long term (current) drug therapy; Z78.9 Other specified health status
CPT/HCPCS: 36415; 71275; 80048; 80053; 80061; 80069; 82105; 82378; 83036; 83540; 83550; 83735; 84100; 84443; 84484; 85025; 85379; 85610; 85730; 86301; 86331; 86480; 86635; 87015; 87081; 87116; 87206; 87400; 87811; 89220; 93005; 94640; 99285; A4649; J1650; J1815; J7030; J7120; Q9967; A9270

== ENCOUNTER 2024-09-29 19:23 | Emergency (ER) | payer MEDICAID, SELFPAY ==
[2024-09-29 19:24] VITALS: BMI 25.0
--- NOTE | 2024-09-29 19:48 | EKG_ITS ---
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
[2024-09-29 20:01] VITALS: BP 115/77; PULSE 81; RESP 18; TEMP 36.7; O2SAT 98
--- NOTE | 2024-09-29 20:17 | XR_ITS ---
Examination: CT brain head without contrast. 2-D sagittal coronal reconstructions Date and time of exam:September 29, 2024 2030 hours INDICATIONS: Headache blurred vision beginning one week ago COMPARISON: December 28, 2020 CTDI: vol (mGy):49.6 DLP: (mGycm):992 Technique: Multiple CT axial sections of the brain have been obtained, 5 mm slice thickness. Contrast has not been administered. 2-D sagittal, coronal reconstructions have been obtained Low dose protocols were performed. One or more of the following dose reduction techniques were used; automated exposure control, adjustment of the mA and/or KV according to patient size, use of iterative reconstruction technique. Findings: No significant ventricular enlargement. Intra-axial or extra-axial hemorrhage density is not seen. No mass effect or midline shift Basal cisterns are not remarkable. Fourth ventricle is midline. Cranial vault intact. Impression: Negative for acute hemorrhage, mass effect or midline shift Consider elective brain MRI follow-up
--- NOTE | 2024-09-29 20:27 | EDNOTE_ITS ---
ED Headache RME/HPI General Chief Complaint: Headache Stated Complaint: RIGHT SIDED HEADACHE, SOB Time Seen by Provider: 09/29/24 20:17 Arrival date/time: 09/29/24 19:23 58M with history of HTN and DM presents to ED with 2 days of R-sided SCHULTE and intermittent blurry vision. Patient denies fall/trauma, LOC, AMS, seizures, N/V, and confusion. Separately, patient has intermittent SOB but does not have any current symptoms and is not in the ED for this complaint. Limitations: no limitations Related Data Home Medications ?Medication ?Instructions ?Recorded ?Confirmed aspirin 81 mg chewable tablet 81 mg PO QDAY 07/04/24 0 07/04/24 atorvastatin 40 mg tablet 40 mg PO QPM 07/04/24 finerenone 10 mg tablet (Kerendia) 10 mg PO QDAY 07/0407/04/24 lisinopril 10 mg tablet 10 mg PO QDAY 07/04/2407/04 Previous Rx's ?Medication ?Instructions ?Recorded albuterol sulfate 90 mcg/actuation 2 inh inhalation QI D PRN shortness 07/10/24 aerosol inhaler of breath or wheezing #6.7 g colin sitagliptin phosphate 50 mg tablet 50 mg PO QDAY 1 mon th #30 tabs 07/10/24 (Januvia) Allergies Allergy/AdvReac Type Severity Reaction Status Date / Time No Known Allergies Allergy Verified 09/29/24 19:24 Review of Systems Review of Systems Systems Reviewed: All systems reviewed, normal except as documented Constitutional Constitutional: Reports system reviewed and no additional complaints, except as documented, Reports as per HPI, Denies fever(s) and Reports headache(s) Eyes Eyes: Reports as per HPI and Reports blurry vision ENT Ears, Nose, Mouth, and Throat: Denies disequilibrium and Reports headache(s) Cardiovascular Cardiovascular: Reports system reviewed and no additional complaints, except as documented, Denies chest pain and Denies dyspnea Respiratory Respiratory: Reports system reviewed and no additional complaints, except as documented, Denies cough and Denies dyspnea Gastrointestinal Gastrointestinal: Reports system reviewed and no additional complaints, except as documented, Denies abdominal pain, Denies nausea and Denies vomiting Neurologic Neurologic: Reports system reviewed and no additional complaints, except as documented, Denies confusion, Denies disequilibrium and Reports headache(s) Psychiatric Psychiatric: Denies confusion Past Medical History Past Medical History NEUROLOGIC: Negative Neurological Disorders, Cerebrovascular Accident, Transient Ischemic Attacks (TIA), Dementia, Alzheimer's Disease, Parkinson's Disease, Brain Tumor, Seizures, Epilepsy, Multiple Sclerosis, Cerebral Palsy, Amyotrophic Lateral Sclerosis (ALS/Oliva Gehrig's), Guillain-[place] Syndrome, Spina Bifida, Paralysis, Peripheral Neuropathy, Low's Palsy, Subdural Hematoma, Migraine, Spinal Cord Injury or Traumatic Brain Injury CARDIAC: Positive Hypercholesterolemia and Hypertension; Negative Cardiac Disorders, Myocardial Infarction, Cardiac Arrhythmia, Atrial Fibrillation, Angina, Heart Murmur, Coronary Artery Disease, Atherosclerotic Heart Disease, Peripheral Vascular Disease, Aneurysm, Congestive Heart Failure, Congenital Heart Disease, Valvular Heart Disease, Rheumatic Fever, Cardiomyopathy, Edema, Pericarditis, Cellulitis, Deep Vein Thrombosis, Hypotension or Varicose Veins RESPIRATORY: Negative Chronic Obstructive Pulmonary Disease (COPD), Asthma, Bronchitis, Emphysema, Pneumonia, Pulmonary Fibrosis, Cystic Fibrosis, Tuberculosis, Pulmonary Embolism, Pulmonary Edema or Sleep Apnea GASTROINTESTINAL: Negative Gastrointestinal Disorders, Hepatitis, Cirrhosis, Pancreatitis, Celiac Disease, Gall Bladder Disease, Gastrointestinal Bleed, Esophageal Varices, Berman's Esophagus, Colitis, Ulcerative Colitis, Diverticulitis, Diverticulosis, Ulcer, Colorectal Cancer, Irritable Bowel, Crohn's Disease, Obstructive Bowel, Hiatal Hernia, Hemorrhoids, Gastroesophageal Reflux Disease or Obesity GENITOURINARY: Negative Genitourinary Disorders, Renal Disease, Kidney Stones, Polycystic Kidney Disease, Neurogenic Bladder, Inguinal Hernia, Dialysis or Prostate Cancer REPRODUCTIVE: Negative Breast Cancer, Fibroids, Genital Herpes, Gonorrhea, Syphilis or Testicular Cancer MUSCULOSKELETAL: Negative Musculoskeletal Disorders, Muscular Dystrophy, Myasthenia Gravis, Marfan's Syndrome, Bone Cancer, Arthritis, Rheumatoid Arthritis, Osteoporosis, Degenerative Disk Disease, Gout, Scoliosis, Carpal Tunnel Syndrome, Fibromyalgia, Fractures, Degenerative Joint Disease, Osteomyelitis or Poliovirus ENT: Negative Cataracts, Glaucoma, Blind, Retinal Detachment, Macular Degeneration, Ear Infection, Deafness or Eye Prosthesis ENDOCRINE: Positive Diabetes Mellitus Type 2; Negative Endocrine Disorders, Diabetes Mellitus Type 1, Hypoglycemia, Cor[place]'s Syndrome, Vincent's Disease, Hyperthyroidism, Hypothyroidism, Parathyroid Disease, Pituitary Disease, Systemic Lupus Erythematosus, Syndrome of In appropriate Antidiuretic Hormone (SIADH), Adrenal Disease or Graves' Disease HEMATOLOGIC: Negative Blood Disorders, Anemia, Leukemia, Hemophilia, Thalassemia, Sickle Cell Disease or Clotting Problems PSYCHO/SOCIAL: Negative Psychiatric Problems, Schizophrenia, Recreational Drug Use, Bipolar Disorder, Depression, Anxiety, Attention Deficit Disorder, Attention Deficit Hyperactivity Disorder, Post Traumatic Stress Disorder or Eating Disorder OTHER HISTORY: Negative Hospitalization, Autoimmune Disease, Down Syndrome, Developmental Delay, Shingles, Falls, Blood Transfusions, Blood Transfusion Reaction, Anesthesia Reactions, Organ Transplant, Chemotherapy, Radiation Therapy, Hyperbaric Therapy, MRSA, VRSA, Vancomycin-Resistant Enterococci, Human Immunodeficiency Virus (HIV), Chicken Pox, Measles, Mumps, Rubella (Hebrew Measles), Pertussis, Clostridium Difficile, Cancer, Breast Cancer, Cervical Cancer, Colorectal Cancer, Lung Cancer, Ovarian Cancer, Prostate Cancer or Testicular Cancer Family History FAMILY HISTORY: Positive Family Cardiac Disorders; Negative Family Psychiatric Problems, Family Respiratory Disorders, Family Gastrointestinal Problems, Family Cancer, Family Surgery or Family Anesthesia Reaction Surgical History SURGICAL: Negative Cardiac Surgery, Open Heart Surgery, Coronary Artery Bypass Graft, Valve Replacement, Vascular Surgery, Coronary Stent, Cardiac Catheterization, Pacemaker, Angiogram, Auto Implanted Cardiovert Defib, Carotid Endarterectomy, Endocrine Surgery, Ear Surgery, Tympanostomy Tube, Eye Surgery, Nose Surgery, Oral Surgery, Tonsillectomy, Adenoidectomy, Cochlear Implant, Corneal Transplant, Throat Surgery, Abdominal Surgery, Tracheostomy, Gastric Bypass Surgery, Gastrostomy, Bowel Surgery, Nephrectomy, Transurethral Resection, Joint Replacement, Amputation, Open Reduction Internal Fixation, Arthroscopy, Neurologic Surgery, Brain Shunt, Mastectomy, Lumpectomy, Hysterectomy, Tubal Ligation, Section, Vasectomy or Organ Transplant Social History SMOKING STATUS: Never smoker SECOND HAND EXPOSURE: No ED Exam General Limitations: Present no limitations General appearance: Present alert and in no apparent distress Head Head exam: Present atraumatic Eye Eye exam: Present normal appearance, PERRL and EOMI ENT ENT exam: Present normal exam, normal oropharynx and mucous membranes moist Neck Neck exam: Present normal inspection, full ROM and trachea midline Chest Chest inspection: Present normal inspection and symmetric chest wall rise Respiratory Respiratory exam: Present normal lung sounds bilaterally Cardiovascular Cardiovascular exam: Present regular rate, normal rhythm and normal heart sounds Abdominal Exam Abdominal exam: Present soft and normal bowel sounds Extremities Exam Extremities exam: Present normal inspection and full ROM Back Exam Back exam: Present normal inspection and full ROM Neurological Exam Neurological exam: Present alert, oriented X3 and CN II-XII intact Psychiatric Psychiatric exam: Present normal affect and normal mood Skin Skin exam: Present warm, dry, intact and normal color Course Quality Measures none Orders Category Date Time Status EKG (ED ONLY) *Do not use* NOW Care 09/29/24 19:[address] head/brain wo con Stat Exams 09/29/24 20:17 Completed EKG (ED Only) Stat Exams 09/29/24 19:48 Draft Metoclopramide [Reglan] Med 09/29/24 20:17 Discontinued 10 mg PO X1 ONE SUMAtriptan INJ [Imitrex Inj] Med 09/29/24 20:17 Discontinued 6 mg SC X1 ONE Vital Signs Vital signs: Vital Signs Temperature 98.1 F 09/29/24 20:01 Pulse Rate 81 09/29/24 20:01 Respiratory Rate 18 09/29/24 20:01 Blood Pressure 115/77 09/29/24 20:01 Pulse Oximetry (%) 98 09/29/24 20:01 Oxygen Delivery Method Room Air 09/29/24 20:01 O2 at 98% on RA and WNLs Headache MDM Narrative MDM Narrative:: 58M with history of HTN and DM presents to ED with 2 days of R-sided SCHULTE and intermittent blurry vision. Patient denies fall/trauma, LOC, AMS, seizures, N/V, and confusion. Separately, patient has intermittent SOB but does not have any cu rrent symptoms and is not in the ED for this complaint. Physical exam reveals normal pupil response and EOM. CN II-XII grossly intact. Speech normal. Gait normal. Normal WOB. Patient is afebrile, calm, and alert. EKG is RBBB, which was apparently on previous EKG from [address] normal. Migraine meds relieved symptoms. Patient data External records reviewed:: [facility] previous records Clinical information provided by:: patient Social determinants that could affect healthcare access:: none Patient has the following chronic illnesses:: HTN and DM How is presenting disease/condition affected by chronic disease/condition?: exacerbated by Evaluation data The following diagnostics were reviewed and interpreted by me:: radiology exam(s) and EKG tracing(s) Lab and/or radiology exams considered but not ordered:: ordered Interpretation Summary: above Medications / Prescriptions Medications or Prescriptions considered but not ordered:: ordered Medication administrations:: Medication Administration History Discontinued Medications Metoclopramide HCl (Metoclopramide 5 Mg Tablet) 10 mg PO X1 ONE Stop: 09/29/24 20:18 Last Admin: 09/29/24 21:22 Dose: 10 mg Documented By: Sumatriptan Succinate (Sumatriptan Inj 6 Mg/0.5 Ml Vial) 6 mg SC X1 ONE Stop: 09/29/24 20:18 Last Admin: 09/29/24 21:22 Dose: 6 mg Documented By: above Consultations Consultation(s) initiated? (list below): No Diagnosis Differential diagnosis headache: migraine, tension headache, subarachnoid hemorrhage, headache, meningitis, sinusitis and postconcussion syndrome Most likely diagnosis given after review of the tests above:: migraine Admission Indicated Admission indicated?: not indicated Admission Request Was there a request for admission?: No Disposition Plan Disposition Plan: Discharge Discharge Attestation Discharge Attestation: The patient and all family members were given an opportunity to ask questions and understood the discharge instructions. Discharge instructions specifically effects, indications for sooner follow up or return to the emergency department, and the expected course of current diagnosis. Patient condition: Stable Discharge Plan Plan Patient Disposition: HOME (Self Care) Discharge Disposition comment: Stable Prescriptions/Referrals Prescriptions/Med Rec: No Action aspirin 81 mg tablet,chewable 81 mg PO QDAY lisinopril 10 mg tablet 10 mg PO QDAY atorvastatin 40 mg tablet 40 mg PO QPM Kerendia 10 mg tablet 10 mg PO QDAY albuterol sulfate 90 mcg/actuation HFA aerosol inhaler 2 inh inhalation QID PRN (Reason: shortness of breath or wheezing) Qty: 6.7 0RF Januvia 50 mg tablet 50 mg PO QDAY 30 Days Qty: 30 1RF Referrals: Yue Martinez DUST COLLECTOR TREATER [Primary Care Provider] - In 1 week Problem List Clinical Impression: Migraine Patient/Caregiver Discharge Instructions Education Materials: ED Headache, Migraine, Classic Additional Instructions: Please follow-up with PCP within 24-48 hours and return immediately if symptoms worsen. 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 Ruth
[2024-09-29] MEDS: SUMAtriptan INJ 6 MG/0.5 ML VIAL SC (21:22)
[2024-09-29] MEDS: METOCLOPRAMIDE 5 MG TABLET 10 MG PO (21:22)
[2024-09-29 22:24] VITALS: RESP 18
== END 2024-09-29 22:25 | disposition home or self-care (01) ==
PROVIDERS: Emergency Provider Emergency Medicine; PCP Nurse Practitioner Family
DX: G43.909 Migraine, unspecified, not intractable, without status migrainosus (principal); E11.9 Type 2 diabetes mellitus without complications; I10 Essential (primary) hypertension
CPT/HCPCS: 70450; 93005; 96372; 99284; J3030; A9270

== ENCOUNTER 2025-01-09 07:15 | Emergency (ER) | payer MEDICAID, SELFPAY ==
[2025-01-09 07:16] VITALS: BMI 25.8
[2025-01-09 07:49] VITALS: BP 121/82; PULSE 87; RESP 18; TEMP 36.7; O2SAT 98
[2025-01-09 07:50] LABS: Collection Type, Urine Clean Catch; Squamous Epithelial Cell,Urine 0 /hpf (0-5)
[2025-01-09 08:09] LABS: Bilirubin,Urine Negative (Negative); Blood,Urine Negative (Negative); Clarity,Urine Clear (Clear/Hazy); Color,Urine Yellow (Lt Yel-Yel); Glucose, Urine Negative (Negative); Ketones,Urine Negative (Negative); Leukocyte Esterase,Urine Negative (Negative); Nitrite,Urine Negative (Negative); PH,Urine 5.5 (5.0-7.0); Protein,Urine 1+ (Neg - Trace); RBC,Urine 3 /hpf (0-3); Specific Gravity,Urine 1.026 (1.001-1.035); Urobilinogen,Urine Negative mg/dL (0.0-1.0); WBC,Urine 1 /hpf (0-5)
--- NOTE | 2025-01-09 08:11 | XR_ITS ---
Examination: PA lateral chest 2 views Technique: Upright PA lateral chest 2 views Date and time: January 09, 2025, 0818 hrs., Comparison June 28, 2024. Indications: Chest pain shortness of breath beginning 3 days ago. Findings: Normal heart size. The lungs are clear. The osseous structures are intact. Impression: No active disease.
--- NOTE | 2025-01-09 08:11 | XR_ITS ---
Examination: Abdomen sonogram, Limited Date and time of exam: January 09, 2025, 0837 hrs. Indications: Right upper abdominal pain beginning several weeks ago Technique: Real-time de [place] santos scale transabdominal sonographic images of the upper abdomen obtained. Findings: Normal gallbladder. Normal common bile duct 0.2 cm. Pancreatic head 1.7 cm. Liver 14.0 cm fatty infiltration Normal hepatopedal portal venous flow. Patent IVC. Impression: Normal gallbladder
--- NOTE | 2025-01-09 08:11 | XR_ITS ---
Examination: AP abdomen single view Technique: AP supine abdomen single view Date and time: January 09, 2025, 0826 hrs. Indications: Abdominal pain today. Findings: Nonobstructive bowel gas pattern. The osseous structures are intact. No renal or ureteral calculi. No free air. Impression: Nonobstructive bowel gas pattern.
--- NOTE | 2025-01-09 08:13 | PD.EDRME ---
Rapid Medical Screening Exam E Arrival date/time: 01/09/25 07:15 Chief Complaint: Abdominal Pain Time Seen by Provider: 01/09/25 07:30 Vital signs: Vital Signs Temperature 98.0 F 01/09/25 07:49 Pulse Rate 87 01/09/25 07:49 Respiratory Rate 18 01/09/25 07:49 Blood Pressure 121/82 01/09/25 07:49 Pulse Oximetry (%) 98 01/09/25 07:49 Oxygen Delivery Method Room Air 01/09/25 07:49 RME Narrative: 59yo diabetic male here for 4days of constipation. no improvement with miralax and prune juice. Also months of ruq pain. that comes and goes. No hx of kidney or gallstones. hx of hernia surgery only. no cp no sob. no fever.
[2025-01-09 08:21] LABS: Sperm,Urine Present
[2025-01-09] MEDS: KETOROLAC INJ 60 MG/2 ML VIAL 30 MG IM (08:34)
--- NOTE | 2025-01-09 09:13 | PC.NURSE ---
Pt. here from home to room 9, pt. states he has been constipated X a day and a half. Pt. states he took prune juice and it didn't help. Pt. states he feels bloated. Pt. denies any vomiting. No s/s of distress at this time.
--- NOTE | 2025-01-09 09:32 | XR_ITS ---
Examination: CT abdomen with intravenous contrast. CT pelvis with intravenous contrast. 2-D sagittal and coronal reconstructions. Date and time of exam: 01/09/2025 11:50 AM Indication: Abdominal pain CTDI: vol (mGy) 13.39 DLP: (mGycm) 586 Technique: Axial sections of the abdomen and pelvis have been obtained post contrast intravenous injection 3 mm slice thickness. 2-D coronal and sagittal reconstructions were obtained. Low dose protocols were performed. One or more of the following dose reduction techniques were used; automated exposure control, adjustment of the mA and/or KV according to patient size, use of iterative reconstruction technique. Intravenous injection correlation with today's ultrasound exam. Findings: Incidental images of the lung bases demonstrates that they are clear. There are no basilar infiltrates or pleural effusions. The heart size is normal. Imaging through the upper abdomen demonstrates a normal-appearing liver, spleen, pancreas, gallbladder and stomach. The adrenal glands are unremarkable. Multiple left renal cysts measuring up to 5 cm. Both kidneys are otherwise normal with respect to size shape and position. There is no evidence of a renal solid mass, nephrolithiasis or hydronephrosis. The abdominal aorta demonstrates atherosclerosis with minimal focal mural thrombi and is otherwise unremarkable. There is no periaortic lymphadenopathy. The small bowel loops and colon have a normal appearance. There is no evidence of an intra-abdominal inflammatory process. The appendix is visualized and is not distended or inflamed. The urinary bladder is not distended and appears entirely normal. The prostate is not enlarged. There is no evidence of an abdominal wall hernia. The osseous structures appear intact. Impression: Multiple left renal cysts measuring up to 5 cm Scattered atherosclerosis. Otherwise no evidence of focal abnormality.
--- NOTE | 2025-01-09 09:32 | EKG_ITS ---
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
[2025-01-09 09:34] LABS: Base Excess, Venous -5 (-3-3); O2 Saturation, Venous 67 % (96-97); PCO2, Venous 63 mmHg (36-56); PO2, Venous 42 mmHg (15-58); pH, Venous 7.20 (7.33-7.66)
[2025-01-09 09:37] LABS: Lactate (Lactic Acid) 1.2 mMol/L (0.4-2.0)
[2025-01-09 09:42] LABS: Basophils # (Auto) 0.0 Thou/mm3 (0.0-0.2); Basophils % (Auto) 1 % (0-2.5); Eosinophils # (Auto) 0.1 Thou/mm3 (0.0-0.5); Eosinophils % (Auto) 2 % (0-10); Hematocrit 41.5 % (41.0-53.0); Hemoglobin 12.8 g/dL (13.5-16.0); Immature Granulocytes Auto 0.01 Thou/mm3 (0.00-0.00); Lymphocytes # (Auto) 1.6 Thou/mm3 (1.0-4.8); Lymphocytes % (Auto) 37 % (10-50); Mean Corpuscular HGB Conc 30.8 g/dl (31.0-37.0); Mean Corpuscular Hemoglobin 22.4 pg (25.0-35.0); Mean Corpuscular Volume 73 fL (80-100); Monocytes # (Auto) 0.5 Thou/mm3 (0.0-0.8); Monocytes % (Auto) 11 % (0-12); Neutrophils # (Auto) 2.2 Thou/mm3 (1.8-7.7); Neutrophils % (Auto) 49 % (37-80); Nucleated Red Blood Cell # 0.00 Thou/mm3 (0.00-0.00); Nucleated Red Blood Cell % 0 /100 WBC (0); Platelet Count 189 Thou/mm3 (140-440); RDW Standard Deviation 36.3 fL (35.1-43.9); Red Blood Count 5.72 Miln/mm3 (4.50-5.90); White Blood Count 4.4 Thou/mm3 (3.8-10.6)
[2025-01-09 09:49] LABS: Beta Hydroxybutyrate 0.1 mmol/L (<0.6)
--- NOTE | 2025-01-09 10:08 | PD.EDABDPN ---
ED Abdominal Pain RME/HPI General Chief Complaint: Abdominal Pain Stated complaint: ABD PAIN Time seen by provider: 01/09/25 07:30 Arrival date/time: 01/09/25 07:15 Limitations: no limitations RME / HPI RME / HPI narrative: 59yo diabetic male here for 4days of constipation. no improvement with miralax and prune juice. Also months of ruq pain. that comes and goes. No hx of kidney or gallstones. hx of hernia surgery only. no cp no sob. no fever. DR. DONALDSON MAIN ED EVALUATION: 59 year old male with history of hypertension and diabetes presents to the ED for evaluation of constipation accompanied by abdominal pain beginning 3 days ago. Pain described as aching in sensation, rating as moderate. States at home he has taken Metamucil and prune juice without improvement. Last bowel movement 3 days ago. Denies fevers, chills, chest pain, cough, shortness of breath, vomiting, or urinary symptoms. Related Data Home Medications ?Medication ?Instructions ?Recorded ?Confirmed aspirin 81 mg chewable tablet 81 mg PO QDAY 07/04/24 07/04/24 atorvastatin 40 mg tablet 40 mg PO QPM 07/04/24 07/04/24 finerenone 10 mg tablet (Kerendia) 10 mg PO QDAY 07/04/24 07/04/24 lisinopril 10 mg tablet 10 mg PO QDAY 07/04/24 07/04/24 Previous Rx's ?Medication ?Instructions ?Recorded albuterol sulfate 90 mcg/actuation 2 inh inhalation QID PRN shortness 07/10/24 aerosol inhaler of breath or wheezing #6.7 grams sitagliptin phosphate 50 mg tablet 50 mg PO QDAY 1 month #30 tabs 07/10/24 (Januvia) bisacodyl 5 mg tablet,delayed 5 mg PO QDAY 15 days #15 tabs 01/09/25 release (Dulcolax (bisacodyl)) lactulose 10 gram/15 mL oral 30 ml PO BID PRN constipation 01/09/25 solution #1,200 mL Allergies Allergy/AdvReac Type Severity Reaction Status Date / Time No Known Allergies Allergy Verified 09/29/24 19:24 Review of Systems Review of Systems Systems Reviewed: All systems reviewed, normal except as documented Past Medical History Past Medical History CARDIAC: Positive Hypercholesterolemia and Hypertension ENDOCRINE: Positive Diabetes Mellitus Type 2 Family History FAMILY HISTORY: Positive Family Cardiac Disorders Social History SMOKING STATUS: Never smoker SECOND HAND EXPOSURE: No ED Exam General Limitations: Present no limitations General appearance: Present alert and in no apparent distress Head Head exam: Present atraumatic Eye Eye exam: Present normal appearance, PERRL and EOMI ENT ENT exam: Present normal exam, normal oropharynx and mucous membranes moist Neck Neck exam: Present normal inspection, full ROM and trachea midline Chest Chest inspection: Present normal inspection and symmetric chest wall rise Respiratory Respiratory exam: Present normal lung sounds bilaterally Cardiovascular Cardiovascular exam: Present regular rate, normal rhythm and normal heart sounds Abdominal Exam Abdominal exam: Present soft and normal bowel sounds Extremities Exam Extremities exam: Present normal inspection and full ROM Back Exam Back exam: Present normal inspection and full ROM Neurological Exam Neurological exam: Present alert, oriented X3 and CN II-XII intact Psychiatric Psychiatric exam: Present normal affect and normal mood Skin Skin exam: Present warm, dry, intact and normal color Course Quality Measures none Orders Category Date Time Status CT Screening NOW Care 01/09/25 09:[address] Screening X1 Care 01/09/25 09:32 Active Instructor Of Education NOW Care 01/09/25 09:32 Active Continuous Pulse Oximetry NOW Care 01/09/25 09:32 Active EKG (ED ONLY) *Do not use* NOW Care 01/09/25 09:32 Completed Insert IV NOW Care 01/09/25 09:[address] abdomen pelvis w con Stat Exams 01/09/25 09:32 Completed EKG (ED Only) Stat Exams 01/09/25 09:32 Draft KUB [XR abdomen 1V] Stat Exams 01/09/25 08:11 Completed US gall bladder Stat Exams 01/09/25 08:11 Completed XR chest 2V Stat Exams 01/09/25 08:11 Completed CBC Stat Lab 01/09/25 09:20 Completed CMP [Comprehensive Metabolic Panel] Stat Lab 01/09/25 09:20 Completed Ketone [Beta Hydroxybutyrate] Stat Lab 01/09/25 09:20 Completed Lactic Acid [Lactate (Lactic Acid)] Stat Lab 01/09/25 09:20 Completed Lipase Stat Lab 01/09/25 09:20 Completed UA [Urinalysis] Stat Lab 01/09/25 08:12 Ordered Urinalysis Stat Lab 01/09/25 07:27 Completed Urinalysis Stat Lab 01/09/25 09:32 Ordered VBG [Venous Blood Gas] Stat Lab 01/09/25 09:20 Completed Ketorolac Inj [Toradol Inj] Med 01/09/25 08:11 Discontinued 30 mg IM X1 ONE Lactulose Syrup [Enulose Syrup] Med 01/09/25 10:28 Discontinued 20 gm PO X1 ONE Sodium Chloride 0.9% 1000 ml [Ns] 1,000 ml Med 01/09/25 09:32 Discontinued IV 999 mls/hr bisacodyL [Dulcolax Supp] Med 01/09/25 10:28 Discontinued 10 mg [place] X1 ONE Vital Signs Vital signs: Vital Signs Temperature 98.0 F 01/09/25 07:49 Pulse Rate 87 01/09/25 07:49 Respiratory Rate 18 01/09/25 07:49 Blood Pressure 121/82 01/09/25 07:49 Pulse Oximetry (%) 98 01/09/25 07:49 Oxygen Delivery Method Room Air 01/09/25 07:49 Pulse ox is 98% on room air which is adequate. Abdominal Pain MDM MDM Narrative MDM Narrative:: Cyndi Spencer am scribing for and in the presence of Dr. Donaldson. Patient data External records reviewed:: [facility] previous records (I reviewed ED visit on 09/29/2024 ) Clinical information provided by:: patient Social determinants that could affect healthcare access:: none Patient has the following chronic illnesses:: hypertension and diabetes How is presenting disease/condition affected by chronic disease/condition?: uneffected by Evaluation data The following diagnostics were reviewed and interpreted by me:: lab results, radiology exam(s) and EKG tracing(s) (01/09/2025 @ 09:57 AM. NSR, rtae 66, RBBB, no acute ischemic changes, no STEMI. ) Lab and/or radiology exams considered but not ordered:: None Interpretation Summary: Ordering Physician: Yeny Harris PA-C Date of Service: 01/09/25 Procedure(s): XR abdomen 1V Accession Number(s): [id number] cc: Yeny Harris PA-C; Chaparro Ramsay MD; Yue Martinez NP~ Examination: PA lateral chest 2 views Technique: Upright PA lateral chest 2 views Date and time: January 09, 2025, 0818 hrs., Comparison June 28, 2024. Indications: Chest pain shortness of breath beginning 3 days ago. Findings: Normal heart size. The lungs are clear. The osseous structures are intact. Impression: No active disease. Dictated By: Chaparro Ramsay MD Signed By: <Electronically signed by Chaparro Ramsay MD in [place]> 01/09/25 1016 Ordering Physician: Yeny Harris PA-C Date of Service: 01/09/25 Procedure(s): XR chest 2V Accession Number(s): [id number] cc: Yeny Harris PA-C; Chaparro Ramsay MD; Yue Martinez NP~ Examination: AP abdomen single view Technique: AP supine abdomen single view Date and time: January 09, 2025, 0826 hrs. Indications: Abdominal pain today. Findings: Nonobstructive bowel gas pattern. The osseous structures are intact. No renal or ureteral calculi. No free air. Impression: Nonobstructive bowel gas pattern. Dictated By: Chaparro Ramsay MD Signed By: <Electronically signed by Chaparro Ramsay MD in [place]> 01/09/25 1017 Ordering Physician: Yeny Harris PA-C Date of Service: 01/09/25 Procedure(s): US gall bladder Accession Number(s): [id number] cc: Yeny Harris PA-C; Chaparro Ramsay MD; Yue Martinez NP~ Examination: Abdomen sonogram, Limited Date and time of exam: January 09, 2025, 0837 hrs. Indications: Right upper abdominal pain beginning several weeks ago Technique: Real-time [place] scale transabdominal sonographic images of the upper abdomen obtained. Findings: Normal gallbladder. Normal common bile duct 0.2 cm. Pancreatic head 1.7 cm. Liver 14.0 cm fatty infiltration Normal hepatopedal portal venous flow. Patent IVC. Impression: Normal gallbladder Dictated By: Chaparro Ramsay MD Signed By: <Electronically signed by Chaparro Ramsay MD in [place]> 01/09/25 1014 Medications / Prescriptions Medications or Prescriptions considered but not ordered:: None Medication administrations:: Medication Administration History Discontinued Medications Bisacodyl (Bisacodyl 10 Mg Supp) 10 mg [place] X1 ONE; Protocol Stop: 01/09/25 10:29 Last Admin: 01/09/25 10:44 Dose: 10 mg Documented By: ED Sodium Chloride (Ns) 1,000 mls @ 999 mls/hr IV .Q1H1M ONE Stop: 01/09/25 10:32 Last Infusion: 01/09/25 11:29 Dose: Infused Documented By: Admin: 01/09/25 10:36 Dose: 999 mls/hr Documented By: ED Ketorolac Tromethamine (Ketorolac Inj 60 Mg/2 Ml Vial) 30 mg IM X1 ONE Stop: 01/09/25 08:12 Last Admin: 01/09/25 08:34 Dose: 30 mg Documented By: DB Lactulose (Lactulose Syrup 20 Gm/30 Ml Udc) 20 gm PO X1 ONE; Protocol Stop: 01/09/25 10:29 Last Admin: 01/09/25 10:44 Dose: 20 gm Documented By: ED See above Consultations Consultation(s) initiated? (list below): No Diagnosis Differential diagnosis abdominal pain: abdominal pain, constipation and small bowel obstruction Most likely diagnosis given after review of the tests above:: Constipation Admission Indicated Admission indicated?: not indicated Admission Request Was there a request for admission?: No Disposition Plan Disposition Plan: Discharge Discharge Attestation Discharge Attestation: The patient and all family members were given an opportunity to ask questions and understood the discharge instructions. Discharge instructions specifically effects, indications for sooner follow up or return to the emergency department, and the expected course of current diagnosis. Patient condition: Stable Discharge Plan Plan Patient Disposition: HOME (Self Care) Patient condition on transfer: Stable Prescriptions/Referrals Prescriptions/Med Rec: New bisacodyl [Dulcolax (bisacodyl)] 5 mg tablet,delayed release (DR/EC) 5 mg PO QDAY 15 Days Qty: 15 0RF lactulose 10 gram/15 mL solution 30 ml PO BID MDD 30 ml PRN (Reason: constipation) Qty: 1200 0RF No Action aspirin 81 mg tablet,chewable 81 mg PO QDAY lisinopril 10 mg tablet 10 mg PO QDAY atorvastatin 40 mg tablet 40 mg PO QPM Kerendia 10 mg tablet 10 mg PO QDAY albuterol sulfate 90 mcg/actuation HFA aerosol inhaler 2 inh inhalation QID PRN (Reason: shortness of breath or wheezing) Qty: 6.7 0RF Januvia 50 mg tablet 50 mg PO QDAY 30 Days Qty: 30 1RF Referrals: Yue Martinez, IRRIGATION TECHNICIAN [Primary Care Provider] - In 1 week Problem List Clinical Impression: Constipation Patient/Caregiver Discharge Instructions Diet Instructions: Eat increased vegetables and fruits. Drink lots of fluids and juices. Education Materials: Treating Constipation, How the Colon Works, ED Constipation (Adult) Additional Instructions: Follow-up with a credit verification clerk for consultation and colonoscopy. You can call Dr. Hartmann at [phone] Print Language: Telugu Stand Alone Forms: [employer] Award Info., Patient Portal Info Letter
[2025-01-09 10:09] LABS: Alanine Aminotransferase 26 U/L (10-49); Albumin, Serum 4.2 gm/dL (3.5-5.0); Albumin/Globulin Ratio 1.7 (1.2-2.2); Alkaline Phosphatase 64 U/L (46-116); Anion Gap 12 (7-16); Aspartate Amino Transferase 22 U/L (0-34); BUN/Creatinine Ratio 12 Ratio (12-20); Bilirubin,Total 0.4 mg/dL (0.3-1.2); Blood Urea Nitrogen 13 mg/dL (9-23); Calcium 9.8 mg/dL (8.3-10.6); Calcium (Corrected) 9.8 mg/dL (8.5-10.1); Carbon Dioxide 25.3 mMol/L (20.0-31.0); Chloride 105 mMol/L (98-107); Creatinine (Component) 1.1 mg/dL (0.6-1.3); Estimated Creatinine Clearance 70.8 mL/min (>60); Globulin 2.5 gm/dL (2.3-3.5); Glucose 119 mg/dL (74-106); Lipase 27 U/L (12-53); Osmolality,Calculated 284 (275-295); Potassium 3.8 mMol/L (3.4-5.1); Sodium 142 mMol/L (136-145); Total Protein 6.7 gm/dL (5.7-8.2); eGFR > 60 See Note
[2025-01-09] MEDS: SODIUM CHLORIDE 0.9% 1000 ML 1,000 ML 999 ML IV (10:36)
[2025-01-09] MEDS: LACTULOSE SYRUP 20 GM/30 ML UDC PO (10:44)
--- NOTE | 2025-01-09 10:50 | PC.NURSE ---
Suppository given, Jules TATE present bedside with me. Pt. tolerated well.
[2025-01-09 10:51] VITALS: BP 128/86; PULSE 89; RESP 17; TEMP 36.8; O2SAT 95
--- NOTE | 2025-01-09 11:43 | PC.NURSE ---
Pt. states he had 2 BM's and he feels so much better. Pt. states thank you.
[2025-01-09 12:41] VITALS: BP 129/89; PULSE 85; RESP 18; TEMP 36.9; O2SAT 97
[2025-01-09 15:01] VITALS: BP 130/82; PULSE 87; RESP 16; TEMP 36.7; O2SAT 99
== END 2025-01-09 15:02 | disposition home or self-care (01) ==
PROVIDERS: Physician Assistant; Emergency Provider Family Medicine; PCP Nurse Practitioner Family
DX: K59.00 Constipation, unspecified (principal); R10.11 Right upper quadrant pain; R07.9 Chest pain, unspecified; R06.02 Shortness of breath; I49.8 Other specified cardiac arrhythmias; I45.10 Unspecified right bundle-branch block; I10 Essential (primary) hypertension; E78.00 Pure hypercholesterolemia, unspecified
CPT/HCPCS: 36415; 71046; 74018; 74177; 76705; 80053; 81001; 82010; 82803; 83605; 83690; 85025; 93005; 96360; 96372; 99284; A4649; J1885; J7030; Q9967; A9270